=== PATIENT | male | born 1950 | race Two or more races ===

== ENCOUNTER → 2016-07-11 | Outpatient (CLI) | payer OTHER ==
[~2016-07-11] MED LIST: ASPI81TA27 PO; ATOR20TA50 PO; CLOP75TA28 PO; DEXL60CA3 PO; ERGO2000 PO; INSUINJ18 SC; LISI10TA6 PO; METF-316 PO; METO25TA5 PO
== END | disposition home or self-care (01) ==
LOC: LAB 11:24
PROVIDERS: ATTEND Thoracic Surgery (Cardiothoracic Vascular Surgery)
DX: R91.8 Other nonspecific abnormal finding of lung field (principal)
CPT/HCPCS: 87070; 87205

== ENCOUNTER → 2016-07-14 | Outpatient (CLI) | payer OTHER | END | disposition home or self-care (01) | LOC: Rad HDHVI 09:40 | PROVIDERS: ATTEND Internal Medicine Cardiovascular Disease | DX: J32.0 Chronic maxillary sinusitis (principal); G31.89 Other specified degenerative diseases of nervous system; I99.8 Other disorder of circulatory system; I67.2 Cerebral atherosclerosis | CPT/HCPCS: 70450 ==

== ENCOUNTER → 2016-08-09 | Outpatient (CLI) | payer OTHER ==
[2016-08-09 15:33] LABS: Basophils # (auto) 0 uL; Basophils % (auto) 0.5 % (0.0-2.0); Eosinophils # (auto) 0.3 uL; Eosinophils % (auto) 3.2 % (0.0-7.0); Hematocrit 40.4 % (41.0-53.0); Hemoglobin 12.7 g/dL (13.5-17.5); Lymphocytes # (auto) 2.8 uL; Lymphocytes % (auto) 30.5 % (10.0-50.0); Mean Corpuscular Hemoglobin 27.1 pg (28.0-32.0); Mean Corpuscular Hgb Conc. 31.4 g/dL (32.0-36.0); Mean Corpuscular Volume 86.1 fL (80.0-100.0); Mean Platelet Volume 8.9 fL (7.4-10.4); Monocytes # (auto) 0.7 uL; Monocytes % (auto) 7.6 % (0.0-12.0); Neutrophils # (auto) 5.3 uL; Neutrophils % (auto) 58.2 % (37.0-80.0); Platelet Count (auto) 286 10^3/uL (140-450); Red Cell Distribution Width 16.3 % (11.6-16.0)
[2016-08-09 15:38] LABS: Albumin 3.5 g/dL (3.4-5.0); BUN/Creatinine Ratio 19.6; Calcium 8.7 mg/dL (8.5-10.1); Potassium 4.1 mmol/L (3.5-5.1)
[2016-08-09 15:41] LABS: Bilirubin, Total 0.4 mg/dL (0.2-1.0); Total Protein 7.7 g/dL (6.4-8.2)
== END | disposition home or self-care (01) ==
LOC: LAB 14:58
PROVIDERS: ATTEND Specialist
DX: I25.110 Atherosclerotic heart disease of native coronary artery with unstable angina pectoris (principal)
CPT/HCPCS: 36415; 80053; 85025

== ENCOUNTER 2016-10-04 10:50 | Inpatient (IN) | payer OTHER ==
[~2016-10-04] VITALS: Ht 170.2 cm; Wt 106.4 kg
[2016-10-04] MEDS ORDERED: SODIUM CHLORIDE 0.9% 1,000 ML IV ONE (11:36)
[2016-10-04] MEDS ORDERED: MORPHINE SULF INJ 2 MG/ML SYRINGE 1ML IV ONE (11:45)
[2016-10-04] MEDS ORDERED: ASPirin 81 mg TAB PO ONE ×2 (11:45→15:30)
[2016-10-04] MEDS ORDERED: ONDANSETRON HCL 4 MG/2 ML VIAL ONE (11:51)
[2016-10-04] MEDS ORDERED: ONDANSETRON HCL 4 MG/2 ML VIAL IV ONE (12:00)
[2016-10-04 12:07] LABS: Basophils # (auto) 0 uL; Basophils % (auto) 0.4 % (0.0-2.0); Eosinophils # (auto) 0.2 uL; Eosinophils % (auto) 2.7 % (0.0-7.0); Hematocrit 43.3 % (41.0-53.0); Hemoglobin 14.3 g/dL (13.5-17.5); Lymphocytes # (auto) 2.2 uL; Lymphocytes % (auto) 29.6 % (10.0-50.0); Mean Corpuscular Hemoglobin 27.4 pg (28.0-32.0); Mean Corpuscular Hgb Conc. 33.1 g/dL (32.0-36.0); Mean Corpuscular Volume 82.7 fL (80.0-100.0); Monocytes # (auto) 0.5 uL; Neutrophils # (auto) 4.6 uL; Neutrophils % (auto) 60.3 % (37.0-80.0); Platelet Count (auto) 243 10^3/uL (140-450); Red Cell Distribution Width 15.9 % (11.6-16.0); White Blood Cell 7.6 10^3/uL (4.4-10.8)
[2016-10-04 12:29] LABS: Albumin 3.6 g/dL (3.4-5.0); Bilirubin, Total 0.4 mg/dL (0.2-1.0); Calcium 9.1 mg/dL (8.5-10.1); Magnesium 2.1 mg/dL (1.6-2.6); Potassium 4.4 mmol/L (3.5-5.1); Total Protein 7.3 g/dL (6.4-8.2)
[2016-10-04 12:30] LABS: B-Type Natriuretic Peptide 75.7 pg/mL (0-100)
[2016-10-04 12:34] LABS: INR 1.02 (0.9-1.15); Partial Thromboplastin Time 27.3 sec (22.64-33.71)
[2016-10-04 13:11] LABS: Temperature: 23.6 C (20.0-25.0)
[2016-10-04] MEDS ORDERED: MORPHINE SULF INJ 2 MG/ML SYRINGE 1ML IV PRN ×2 (15:15)
[2016-10-04] MEDS ORDERED: PROCHLORPERAZINE EDISYLATE 5 MG/ML 2ML VIAL IV PRN (15:15)
[2016-10-04] MEDS ORDERED: NITROGLYCERIN 0.4 MG SL TAB SL PRN (15:15)
[2016-10-04] MEDS ORDERED: HYDROcodone-ACET 5/325MG TAB PO PRN (15:15)
[2016-10-04] MEDS ORDERED: DEXTROSE (50%) 50ML SYRG IV PRN (15:15)
[2016-10-04] MEDS ORDERED: LORazepam 0.5 MG TAB PO PRN (15:15)
[2016-10-04] MEDS ORDERED: LACTULOSE 20Gm/30ML SOLN PO PRN (15:15)
[2016-10-04] MEDS ORDERED: ACETAMINOPHEN 500 MG TAB PO PRN (15:15)
[2016-10-04] MEDS ORDERED: TEMAZEPAM 15 MG CAP PO PRN (15:15)
[2016-10-04] MEDS: SODIUM CHLORIDE 0.9% 1,000 ML IV SCH (15:19)
[2016-10-04] MEDS ORDERED: CLOPIDOGREL BISULFATE 75 MG TAB PO ONE (15:30)
[2016-10-04] MEDS ORDERED: NITROGLYCERIN 0.2MG/HR TOPICAL PATCH TD ONE (15:30)
[2016-10-04] MEDS ORDERED: ENOXAPARIN SOD 40 MG/0.4 ML SYRINGE SC ONE (15:30)
[2016-10-04] MEDS ORDERED: METOPROLOL TARTRATE 25 MG TAB PO ONE (15:30)
[2016-10-04] MEDS ORDERED: LISINOPRIL 10 MG TAB PO ONE (15:30)
[2016-10-04] MEDS: CHOLECALCIFEROL (VITD3) 1,000 UNIT TAB PO SCH (15:40)
[2016-10-04] MEDS ORDERED: IOHEXOL 350 MG/ML 100ML IJ ONE (15:50)
[2016-10-04] MEDS: InsuLIN REG 1unit/0.01ml Soln (100units/ml) SC SCH ×3 (15:55→23:56)
[2016-10-04] MEDS: ACCU-CHEK COMFORT CURVE STRIP VI SCH ×3 (15:55→23:55)
[2016-10-04 18:25] VITALS: BP 128/69
[2016-10-04] MEDS: PANTOPRAZOLE 40 MG TAB PO SCH (18:31)
[2016-10-04] MEDS ORDERED: ALPR0.5T7 PO (19:23)
[2016-10-04] MEDS ORDERED: QUET50TA PO (19:23)
[2016-10-04] MEDS ORDERED: METO25TA62 PO (19:24)
[2016-10-04 20:00] VITALS: BP 105/47
[2016-10-04] MEDS: ATORVASTATIN 20 MG TAB PO SCH (21:21)
[2016-10-04 22:00] VITALS: BP 105/47
[2016-10-04] MEDS ORDERED: ENOXAPARIN SOD 80 MG/0.8ML SYRINGE SC ONE (22:30)
[2016-10-04 22:50] VITALS: BP 106/50
[2016-10-05] VITALS (7 sets, daily range): BP systolic 101–119; BP diastolic 46–79
[2016-10-05] MEDS: ACCU-CHEK COMFORT CURVE STRIP VI SCH ×4 (04:00→17:43)
[2016-10-05] MEDS: InsuLIN REG 1unit/0.01ml Soln (100units/ml) SC SCH ×4 (04:00→17:43)
[2016-10-05] MEDS: SODIUM CHLORIDE 0.9% 1,000 ML IV SCH (04:05)
[2016-10-05 05:53] LABS: Basophils # (auto) 0 uL; Basophils % (auto) 0.5 % (0.0-2.0); Eosinophils # (auto) 0.3 uL; Eosinophils % (auto) 3.2 % (0.0-7.0); Hematocrit 41.9 % (41.0-53.0); Hemoglobin 13.5 g/dL (13.5-17.5); Lymphocytes # (auto) 2.2 uL; Lymphocytes % (auto) 26.8 % (10.0-50.0); Mean Corpuscular Hemoglobin 27.1 pg (28.0-32.0); Mean Corpuscular Hgb Conc. 32.3 g/dL (32.0-36.0); Mean Corpuscular Volume 84.1 fL (80.0-100.0); Mean Platelet Volume 9.1 fL (7.4-10.4); Monocytes # (auto) 0.7 uL; Monocytes % (auto) 8.3 % (0.0-12.0); Neutrophils % (auto) 61.2 % (37.0-80.0); Platelet Count (auto) 221 10^3/uL (140-450); Red Cell Distribution Width 15.9 % (11.6-16.0); White Blood Cell 8.2 10^3/uL (4.4-10.8)
[2016-10-05 06:37] LABS: Albumin 3.3 g/dL (3.4-5.0); BUN/Creatinine Ratio 15.9; Bilirubin, Total 0.4 mg/dL (0.2-1.0); Calcium 8.4 mg/dL (8.5-10.1); Total Protein 6.6 g/dL (6.4-8.2)
[2016-10-05] MEDS: CHOLECALCIFEROL (VITD3) 1,000 UNIT TAB PO SCH (09:50)
[2016-10-05] MEDS: PANTOPRAZOLE 40 MG TAB PO SCH (09:51)
[2016-10-05] MEDS: ASPirin 81 mg TAB PO SCH (09:51)
[2016-10-05] MEDS: CLOPIDOGREL BISULFATE 75 MG TAB PO SCH (09:51)
[2016-10-05] MEDS ORDERED: ASP SC SCH (10:00)
[2016-10-05] MEDS ORDERED: INSULIN ASPART PROTAMINE SC SCH (10:00)
[2016-10-05] MEDS: LISINOPRIL 10 MG TAB PO SCH (10:00)
[2016-10-05] MEDS: NITROGLYCERIN 0.2MG/HR TOPICAL PATCH TD SCH (10:00)
[2016-10-05] MEDS ORDERED: ENOXAPARIN SOD 40 MG/0.4 ML SYRINGE SC SCH (10:00)
[2016-10-05] MEDS: METOPROLOL TARTRATE 25 MG TAB PO SCH ×2 (10:00→12:30)
[2016-10-05] MEDS ORDERED: DEXTROSE (50%) 50ML SYRG IV PRN (12:15)
[2016-10-05] MEDS ORDERED: ALPRAZolam 0.5 MG TAB PO ONE (12:45)
[2016-10-05] MEDS ORDERED: ENOXAPARIN SOD 80 MG/0.8ML SYRINGE SC ONE (15:21)
[2016-10-05] MEDS ORDERED: ALPRAZolam 0.5 MG TAB PO PRN (20:00)
[2016-10-05] MEDS: ATORVASTATIN 20 MG TAB PO SCH (21:37)
[2016-10-05] MEDS ORDERED: ENOXAPARIN SOD 100 MG/1 ML SYRINGE SC SCH (22:00)
[2016-10-06] VITALS (10 sets, daily range): BP systolic 93–126; BP diastolic 52–80
[2016-10-06] MEDS: ACCU-CHEK COMFORT CURVE STRIP VI SCH ×5 (00:14→23:43)
[2016-10-06] MEDS: InsuLIN REG 1unit/0.01ml Soln (100units/ml) SC SCH ×5 (00:14→23:48)
[2016-10-06 00:21] LABS: Urine RBC None Seen /hpf (0 - 3)
[2016-10-06 00:42] LABS: Urine Bilirubin Negative (Negative); Urine Blood Negative /uL (Negative); Urine Color Yellow (Yellow); Urine Ketone Negative (Negative); Urine Nitrite Negative (Negative); Urine Squamous Epithelial Cell FEW /hpf (<5); Urine Urobilinogen Normal (Negative)
[2016-10-06 00:44] LABS: Urine Glucose 2+ mg/dL (Normal)
[2016-10-06 06:17] LABS: Basophils # (auto) 0 uL; Basophils % (auto) 0.2 % (0.0-2.0); Eosinophils # (auto) 0.3 uL; Eosinophils % (auto) 2.9 % (0.0-7.0); Hemoglobin 13.9 g/dL (13.5-17.5); Lymphocytes # (auto) 3.2 uL; Lymphocytes % (auto) 35.7 % (10.0-50.0); Mean Corpuscular Hemoglobin 27.1 pg (28.0-32.0); Mean Corpuscular Hgb Conc. 32.2 g/dL (32.0-36.0); Mean Corpuscular Volume 84.1 fL (80.0-100.0); Mean Platelet Volume 9.1 fL (7.4-10.4); Monocytes # (auto) 0.7 uL; Monocytes % (auto) 8.1 % (0.0-12.0); Neutrophils # (auto) 4.7 uL; Neutrophils % (auto) 53.1 % (37.0-80.0); Platelet Count (auto) 247 10^3/uL (140-450); Red Cell Distribution Width 15.9 % (11.6-16.0); White Blood Cell 8.8 10^3/uL (4.4-10.8)
[2016-10-06 06:58] LABS: BUN/Creatinine Ratio 12.6; Potassium 3.9 mmol/L (3.5-5.1)
[2016-10-06] MEDS: ASPirin 81 mg TAB PO SCH (10:00)
[2016-10-06] MEDS: INSULIN 70/30 1unit/0.01ml Susp (100units/ml) SC SCH (10:00)
[2016-10-06] MEDS: NITROGLYCERIN 0.2MG/HR TOPICAL PATCH TD SCH (10:00)
[2016-10-06] MEDS: CHOLECALCIFEROL (VITD3) 1,000 UNIT TAB PO SCH (10:26)
[2016-10-06] MEDS: CLOPIDOGREL BISULFATE 75 MG TAB PO SCH (10:26)
[2016-10-06] MEDS: METOPROLOL TARTRATE 25 MG TAB PO SCH (10:56)
[2016-10-06] MEDS: PANTOPRAZOLE 40 MG TAB PO SCH (10:56)
[2016-10-06] MEDS: LISINOPRIL 10 MG TAB PO SCH (10:57)
[2016-10-06] MEDS ORDERED: LIDOCAINE 2%HCL (LOCAL ANESTH.) INJ 20ML MDV ONE (13:20)
[2016-10-06] MEDS ORDERED: IOHEXOL 350 MG/ML 100ML IJ ONE (13:20)
[2016-10-06] MEDS ORDERED: fentaNYL CITRATE 100 MCG/2 ML VL ONE (13:23)
[2016-10-06] MEDS ORDERED: ANGIOMAX 250 MG VIAL IV ONE (13:23)
[2016-10-06] MEDS ORDERED: MIDAZOLAM HCL 1MG/1ML-2 ML VIAL ONE (13:24)
[2016-10-06] MEDS ORDERED: SODIUM CHL 0.9% 50 ML ONE (13:24)
[2016-10-06] MEDS ORDERED: QUEtiapine FUMARATE 25 MG TAB PO SCH (22:00)
[2016-10-06] MEDS: ATORVASTATIN 20 MG TAB PO SCH (22:15)
[2016-10-07 05:00] VITALS: BP 83/57
[2016-10-07] MEDS: ACCU-CHEK COMFORT CURVE STRIP VI SCH ×2 (05:30→13:20)
[2016-10-07] MEDS: InsuLIN REG 1unit/0.01ml Soln (100units/ml) SC SCH ×2 (05:33→13:20)
[2016-10-07 05:58] LABS: Calcium 8.7 mg/dL (8.5-10.1); Potassium 3.7 mmol/L (3.5-5.1)
[2016-10-07 09:00] VITALS: BP 90/46
[2016-10-07] MEDS: METOPROLOL TARTRATE 25 MG TAB PO SCH (10:00)
[2016-10-07] MEDS: LISINOPRIL 10 MG TAB PO SCH (10:00)
[2016-10-07] MEDS: NITROGLYCERIN 0.2MG/HR TOPICAL PATCH TD SCH (10:00)
[2016-10-07] MEDS: ASPirin 81 mg TAB PO SCH (10:16)
[2016-10-07] MEDS: CLOPIDOGREL BISULFATE 75 MG TAB PO SCH (10:17)
[2016-10-07] MEDS: PANTOPRAZOLE 40 MG TAB PO SCH (10:18)
[2016-10-07] MEDS: CHOLECALCIFEROL (VITD3) 1,000 UNIT TAB PO SCH (10:18)
[2016-10-07] MEDS: INSULIN 70/30 1unit/0.01ml Susp (100units/ml) SC SCH (10:25)
[2016-10-07 13:00] VITALS: BP 106/69
== END 2016-10-07 16:30 | disposition home or self-care (01) | DRG 247 ==
LOC: EDBD 10:50 → ER 10:50 → TELE 10:51 → TELE-E-ADS 17:28 → TELE-WESTW 17:57
PROVIDERS: ADMIT Internal Medicine; ATTEND Internal Medicine
PROC: 027135Z Dilation of Coronary Artery, Two Arteries with Two Drug-eluting Intraluminal Devices, Percutaneous Approach (ICD-10-PCS; principal; 2016-10-04)
PROC: 4A023N7 Measurement of Cardiac Sampling and Pressure, Left Heart, Percutaneous Approach (ICD-10-PCS; 2016-10-04)
PROC: B2111ZZ Fluoroscopy of Multiple Coronary Arteries using Low Osmolar Contrast (ICD-10-PCS; 2016-10-04)
DX: I21.4 Non-ST elevation (NSTEMI) myocardial infarction (principal); I25.810 Atherosclerosis of coronary artery bypass graft(s) without angina pectoris; E11.65 Type 2 diabetes mellitus with hyperglycemia; E78.5 Hyperlipidemia, unspecified; E66.01 Morbid (severe) obesity due to excess calories; G47.00 Insomnia, unspecified; F41.9 Anxiety disorder, unspecified; F17.210 Nicotine dependence, cigarettes, uncomplicated; I10 Essential (primary) hypertension; E66.9 Obesity, unspecified; Z86.73 Personal history of transient ischemic attack (TIA), and cerebral infarction without residual deficits; Z95.0 Presence of cardiac pacemaker; Z95.5 Presence of coronary angioplasty implant and graft; Z95.1 Presence of aortocoronary bypass graft; Z79.899 Other long term (current) drug therapy; Z68.36 Body mass index [BMI] 36.0-36.9, adult
CPT/HCPCS: 36415; 71020; 71275; 80048; 80053; 81001; 82550; 82962; 83036; 83735; 83880; 84443; 84484; 85025; 85379; 85610; 85652; 85730; 86850; 86900; 86901; 92928; 92929; 93005; 93458; 96361; 96372; 96374; 96375; G0434; J1815; J2250; J2405

== ENCOUNTER → 2016-11-15 | Outpatient (CLI) | payer OTHER ==
[~2016-11-15] VITALS: Ht 170.2 cm; Wt 102.5 kg
[~2016-11-15] MED LIST changes: +ADENOSINE 86 MG in GIVE UN-DILUTED 0 ML IV ONE; +ADENOSINE 90 MG/30 ML INJ IV ONE; +ALPR0.5T7 PO; -METF-316 PO; -METO25TA5 PO; +METO25TA62 PO; +QUET50TA PO
== END | disposition home or self-care (01) ==
LOC: Rad HDHVI 09:00
PROVIDERS: ATTEND Internal Medicine Cardiovascular Disease
DX: I25.2 Old myocardial infarction (principal); I10 Essential (primary) hypertension; E11.9 Type 2 diabetes mellitus without complications; E78.00 Pure hypercholesterolemia, unspecified; Z95.1 Presence of aortocoronary bypass graft; Z95.0 Presence of cardiac pacemaker
CPT/HCPCS: 78452; 93005; 96374; 96375; A9500; J0153

== ENCOUNTER → 2017-04-18 | Outpatient (CLI) | payer OTHER ==
[~2017-04-18] MED LIST changes: -ADENOSINE 86 MG in GIVE UN-DILUTED 0 ML IV ONE; -ADENOSINE 90 MG/30 ML INJ IV ONE
[2017-04-18 08:10] VITALS: BP 108/61
== END | disposition home or self-care (01) ==
LOC: CHF HDHVI 08:01
PROVIDERS: ATTEND Internal Medicine Cardiovascular Disease
DX: I50.9 Heart failure, unspecified (principal); R07.89 Other chest pain; Z95.810 Presence of automatic (implantable) cardiac defibrillator
CPT/HCPCS: 93005; G0463

== ENCOUNTER 2017-05-07 11:24 | Inpatient (IN) | payer OTHER ==
[~2017-05-07] VITALS: Ht 165.1 cm; Wt 98.6 kg
[2017-05-07 12:29] LABS: Basophils # (auto) 0 uL; Basophils % (auto) 0.6 % (0.0-2.0); Eosinophils # (auto) 0.1 uL; Eosinophils % (auto) 1.3 % (0.0-7.0); Hematocrit 45.5 % (41.0-53.0); Hemoglobin 14.8 g/dL (13.5-17.5); Lymphocytes # (auto) 1.9 uL; Lymphocytes % (auto) 22.7 % (10.0-50.0); Mean Corpuscular Hemoglobin 29.3 pg (28.0-32.0); Mean Corpuscular Hgb Conc. 32.5 g/dL (32.0-36.0); Mean Corpuscular Volume 90.2 fL (80.0-100.0); Mean Platelet Volume 7.9 fL (6.9-10.8); Monocytes # (auto) 0.6 uL; Monocytes % (auto) 6.9 % (0.0-12.0); Neutrophils # (auto) 5.6 uL; Neutrophils % (auto) 68.5 % (37.0-80.0); Nucleated Red Blood Cells % 0.1 %; Platelet Count (auto) 237 10^3/uL (140-450); Red Cell Distribution Width 13.6 % (11.8-14.3); White Blood Cell 8.2 10^3/uL (4.4-10.8)
[2017-05-07 12:42] LABS: Albumin 3.8 g/dL (3.4-5.0); Alkaline Phosphatase 89 U/L (45-117); Anion Gap 9 (5-15); Aspartate Aminotransferase 22 U/L (15-37); BUN/Creatinine Ratio 14.2; Bilirubin, Total 0.9 mg/dL (0.2-1.0); Blood Urea Nitrogen 18 mg/dL (7-18); Calcium 9.2 mg/dL (8.5-10.1); Carbon Dioxide 25 mmol/L (21-32); Chloride 103 mmol/L (98-107); GFR African American 73 mL/min; GFR Non-African American 60 mL/min; Glucose 175 mg/dL (74-106); Magnesium 2.3 mg/dL (1.6-2.6); Potassium 4.3 mmol/L (3.5-5.1); Sodium 137 mmol/L (136-145); Total Protein 7.9 g/dL (6.4-8.2)
[2017-05-07] MEDS ORDERED: DEXTROSE (50%) 50ML SYRG IV PRN (15:30)
[2017-05-07] MEDS ORDERED: NITROGLYCERIN 0.4 MG SL TAB SL PRN (15:30)
[2017-05-07] MEDS: InsuLIN REG 1unit/0.01ml Soln (100units/ml) SC SCH ×2 (17:00→22:00)
[2017-05-07] MEDS: ACCU-CHEK COMFORT CURVE STRIP VI SCH ×2 (17:13→23:01)
[2017-05-07 21:00] VITALS: BP 120/75
[2017-05-07 22:00] VITALS: BP 114/74
[2017-05-07] MEDS: QUEtiapine FUMARATE 25 MG TAB PO SCH (23:00)
[2017-05-07] MEDS: ATORVASTATIN 20 MG TAB PO SCH (23:00)
[2017-05-08] MEDS ORDERED: TEMAZEPAM 15 MG CAP PO ONE (01:00)
[2017-05-08 05:00] VITALS: BP 104/68
[2017-05-08] MEDS: ACCU-CHEK COMFORT CURVE STRIP VI SCH ×4 (07:00→22:41)
[2017-05-08] MEDS: InsuLIN REG 1unit/0.01ml Soln (100units/ml) SC SCH ×4 (07:00→22:00)
[2017-05-08 08:00] VITALS: BP 115/72
[2017-05-08 09:00] VITALS: BP 115/72
[2017-05-08] MEDS: ASPirin 81 mg TAB PO SCH (10:37)
[2017-05-08 10:56] LABS: Urine Bilirubin Negative (Negative); Urine Blood Negative /uL (Negative); Urine Color Yellow (Yellow); Urine Glucose Normal (Normal); Urine Ketone Negative (Negative); Urine Mucus FEW (None Seen); Urine Nitrite Negative (Negative); Urine RBC 1 /hpf (0 - 3); Urine Squamous Epithelial Cell FEW /hpf (<5)
[2017-05-08] MEDS ORDERED: VANCOMYCIN HCL 1000 MG VL IR ONE (12:45)
[2017-05-08] MEDS ORDERED: ceFAZolin 1GM/50ML 50 ML IV ONE (12:45)
[2017-05-08] MEDS ORDERED: VANCOMYCIN 1GM/250ML 250 ML IV ONE (12:45)
[2017-05-08 13:00] VITALS: BP 141/76
[2017-05-08] MEDS ORDERED: LIDOCAINE 2%HCL (LOCAL ANESTH.) INJ 20ML MDV ONE ×2 (13:37→14:48)
[2017-05-08 14:01] LABS: INR 0.99 (0.9-1.15); Prothrombin Time 10.8 sec (9.37-12.3)
[2017-05-08] MEDS ORDERED: MIDAZOLAM HCL 1MG/1ML-2 ML VIAL ONE (15:06)
[2017-05-08] MEDS ORDERED: fentaNYL CITRATE 100 MCG/2 ML VL ONE (15:06)
[2017-05-08] MEDS ORDERED: ceFAZolin 1GM VL ONE (15:34)
[2017-05-08 17:00] VITALS: BP 140/79
[2017-05-08] MEDS ORDERED: QUET25TA46 PO (18:22)
[2017-05-08] MEDS ORDERED: INSLANTI SC (18:23)
[2017-05-08 22:00] VITALS: BP 106/58
[2017-05-08] MEDS: ATORVASTATIN 20 MG TAB PO SCH (22:40)
[2017-05-08] MEDS: QUEtiapine FUMARATE 25 MG TAB PO SCH (22:41)
[2017-05-09 05:00] VITALS: BP 106/54
[2017-05-09] MEDS: ACCU-CHEK COMFORT CURVE STRIP VI SCH ×2 (07:00→11:44)
[2017-05-09] MEDS: InsuLIN REG 1unit/0.01ml Soln (100units/ml) SC SCH ×2 (07:00→11:30)
[2017-05-09] MEDS: ASPirin 81 mg TAB PO SCH (09:28)
[2017-05-09 12:07] VITALS: BP 134/78
== END 2017-05-09 12:50 | disposition home or self-care (01) | DRG 259 ==
LOC: ER 11:24 → TELE 11:25 → TELE-WESTW 20:10
PROVIDERS: ADMIT Internal Medicine; ATTEND Internal Medicine
PROC: 0JPT0PZ Removal of Cardiac Rhythm Related Device from Trunk Subcutaneous Tissue and Fascia, Open Approach (ICD-10-PCS; principal; 2017-05-08)
PROC: 0JH606Z Insertion of Pacemaker, Dual Chamber into Chest Subcutaneous Tissue and Fascia, Open Approach (ICD-10-PCS; 2017-05-08)
DX: T82.111A Breakdown (mechanical) of cardiac pulse generator (battery), initial encounter (principal); I49.5 Sick sinus syndrome; E11.9 Type 2 diabetes mellitus without complications; I10 Essential (primary) hypertension; I25.10 Atherosclerotic heart disease of native coronary artery without angina pectoris; Y71.2 Prosthetic and other implants, materials and accessory cardiovascular devices associated with adverse incidents; E66.9 Obesity, unspecified; E78.5 Hyperlipidemia, unspecified; Z79.4 Long term (current) use of insulin; Z79.899 Other long term (current) drug therapy; Z95.1 Presence of aortocoronary bypass graft; Y92.89 Other specified places as the place of occurrence of the external cause; Z68.36 Body mass index [BMI] 36.0-36.9, adult
CPT/HCPCS: 33228; 36415; 70450; 71010; 71020; 80053; 81001; 82962; 83036; 83735; 84484; 85025; 85610; 85730; 93005; 93306; 94761; 99152; 99153; C1785; J0690; J2250

== ENCOUNTER → 2017-05-14 | Outpatient (CLI) | payer OTHER ==
[~2017-05-14] MED LIST changes: -CLOP75TA28 PO; -DEXL60CA3 PO; +INSLANTI SC; -INSUINJ18 SC; +QUET25TA46 PO; -QUET50TA PO
[2017-05-14 16:00] VITALS: BP 142/90
[2017-05-14 16:17] LABS: Basophils # (auto) 0.1 uL; Basophils % (auto) 0.9 % (0.0-2.0); Eosinophils # (auto) 0.2 uL; Eosinophils % (auto) 2.4 % (0.0-7.0); Hematocrit 43.6 % (41.0-53.0); Hemoglobin 14.6 g/dL (13.5-17.5); Lymphocytes # (auto) 2.8 uL; Lymphocytes % (auto) 30.5 % (10.0-50.0); Mean Corpuscular Hemoglobin 29.7 pg (28.0-32.0); Mean Corpuscular Hgb Conc. 33.5 g/dL (32.0-36.0); Mean Corpuscular Volume 88.6 fL (80.0-100.0); Monocytes # (auto) 0.7 uL; Neutrophils # (auto) 5.3 uL; Neutrophils % (auto) 58.2 % (37.0-80.0); Nucleated Red Blood Cells % 0.1 %; Platelet Count (auto) 216 10^3/uL (140-450)
[2017-05-14 16:29] VITALS: BP 141/80
[2017-05-14 16:47] LABS: Albumin 3.8 g/dL (3.4-5.0); Bilirubin, Total 0.5 mg/dL (0.2-1.0); Calcium 8.7 mg/dL (8.5-10.1); Magnesium 2.1 mg/dL (1.6-2.6); Potassium 4.8 mmol/L (3.5-5.1); Total Protein 7.7 g/dL (6.4-8.2)
== END | disposition home or self-care (01) ==
LOC: CHF HDHVI 15:17
PROVIDERS: ATTEND Internal Medicine Cardiovascular Disease
DX: I10 Essential (primary) hypertension (principal); E83.42 Hypomagnesemia; D64.9 Anemia, unspecified
CPT/HCPCS: 36415; 80053; 83735; 85025; G0463

== ENCOUNTER → 2017-05-24 | Outpatient (CLI) | payer OTHER ==
[2017-05-24 09:45] VITALS: BP 142/88
== END | disposition home or self-care (01) ==
LOC: CHF HDHVI 09:55
PROVIDERS: ATTEND Internal Medicine Cardiovascular Disease
DX: Z95.0 Presence of cardiac pacemaker (principal)
CPT/HCPCS: G0463

== ENCOUNTER → 2018-10-14 | Outpatient (CLI) | payer OTHER ==
[2018-10-14 10:22] LABS: Basophils # (auto) 0 uL; Basophils % (auto) 0.5 % (0.0-2.0); Eosinophils # (auto) 0.2 uL; Eosinophils % (auto) 3.4 % (0.0-7.0); Hematocrit 44.1 % (41.0-53.0); Hemoglobin 14.3 g/dL (13.5-17.5); Lymphocytes # (auto) 1.4 uL; Lymphocytes % (auto) 19.7 % (10.0-50.0); Mean Corpuscular Hemoglobin 28.3 pg (28.0-32.0); Mean Corpuscular Hgb Conc. 32.5 g/dL (32.0-36.0); Mean Corpuscular Volume 87.1 fL (80.0-100.0); Monocytes # (auto) 0.5 uL; Monocytes % (auto) 6.6 % (0.0-12.0); Neutrophils # (auto) 4.9 uL; Neutrophils % (auto) 69.8 % (37.0-80.0); Nucleated Red Blood Cells % 0.1 %; Platelet Count (auto) 218 10^3/uL (140-450); Red Blood Cells 5.06 10^6/uL (4.5-5.90); Red Cell Distribution Width 14.1 % (11.8-14.3)
[2018-10-14 10:25] LABS: Urine Bacteria NONE SEEN /hpf (None Seen); Urine Blood Negative /uL (Negative); Urine Specific Gravity 1.013 (1.001-1.035); Urine WBC <1 /hpf (0 - 3)
[2018-10-14 17:10] LABS: Calcium 9.2 mg/dL (8.5-10.1); Potassium 4.2 mmol/L (3.5-5.1)
[2018-10-14 17:16] LABS: Albumin 4.1 g/dL (3.4-5.0); BUN/Creatinine Ratio 12.1; Bilirubin, Total 0.8 mg/dL (0.2-1.0)
== END | disposition home or self-care (01) ==
LOC: LAB 09:33
PROVIDERS: ATTEND Family Medicine
DX: E11.9 Type 2 diabetes mellitus without complications (principal); I10 Essential (primary) hypertension; L82.1 Other seborrheic keratosis; E66.9 Obesity, unspecified; Z95.0 Presence of cardiac pacemaker
CPT/HCPCS: 36415; 80053; 80061; 81001; 82043; 82607; 83036; 85025

== ENCOUNTER → 2019-07-22 | Outpatient (CLI) | payer OTHER ==
[~2019-07-22] VITALS: Ht 170.2 cm; Wt 97.5 kg
[~2019-07-22] MED LIST changes: +ADENOSINE 82 MG in GIVE UN-DILUTED 0 ML IV ONE; +ADENOSINE 90 MG/30 ML INJ IV ONE; +ASPI-404 PO; -ASPI81TA27 PO; -METO25TA62 PO; +METO25TA93 PO
== END | disposition home or self-care (01) ==
LOC: Rad HDHVI 07:53
PROVIDERS: ATTEND Internal Medicine Cardiovascular Disease
DX: I08.3 Combined rheumatic disorders of mitral, aortic and tricuspid valves (principal); I25.118 Atherosclerotic heart disease of native coronary artery with other forms of angina pectoris; I10 Essential (primary) hypertension; R53.83 Other fatigue; R53.1 Weakness; R41.3 Other amnesia; E11.9 Type 2 diabetes mellitus without complications; E78.00 Pure hypercholesterolemia, unspecified; I25.2 Old myocardial infarction; Z95.5 Presence of coronary angioplasty implant and graft; Z95.1 Presence of aortocoronary bypass graft; Z95.0 Presence of cardiac pacemaker
CPT/HCPCS: 78452; 93005; 93306; 96374; 96375; A9500; J0153

== ENCOUNTER → 2021-01-26 | Outpatient (CLI) | payer OTHER ==
[~2021-01-26] MED LIST changes: -ADENOSINE 82 MG in GIVE UN-DILUTED 0 ML IV ONE; -ADENOSINE 90 MG/30 ML INJ IV ONE; -ASPI-404 PO; +ASPI-543 PO; +IOHEXOL 300 MG/ML 100ML BOTTLE IJ ONE; +LIDOCAINE 2%HCL (LOCAL ANESTH.) INJ 20ML MDV ONE; +LISI-716 PO; -LISI10TA6 PO
== END | disposition home or self-care (01) ==
LOC: CT 09:50
PROVIDERS: ATTEND Orthopaedic Surgery Sports Medicine
DX: M25.511 Pain in right shoulder (principal); S43.004D Unspecified dislocation of right shoulder joint, subsequent encounter; F32.9 Major depressive disorder, single episode, unspecified; Z82.49 Family history of ischemic heart disease and other diseases of the circulatory system; Z95.5 Presence of coronary angioplasty implant and graft; Z80.9 Family history of malignant neoplasm, unspecified; Z83.49 Family history of other endocrine, nutritional and metabolic diseases; Y92.89 Other specified places as the place of occurrence of the external cause; Y93.89 Activity, other specified; Y99.8 Other external cause status
CPT/HCPCS: 73030; 73200; 76000; Q9967

== ENCOUNTER → 2021-05-11 | Outpatient (CLI) | payer OTHER ==
[~2021-05-11] VITALS: Ht 170.2 cm; Wt 104.3 kg
[~2021-05-11] MED LIST changes: +ADENOSINE 88 MG in GIVE UN-DILUTED 0 ML IV ONE; +ADENOSINE 90 MG/30 ML INJ IV ONE; -IOHEXOL 300 MG/ML 100ML BOTTLE IJ ONE; -LIDOCAINE 2%HCL (LOCAL ANESTH.) INJ 20ML MDV ONE; +QUET1TAB11 PO; -QUET25TA46 PO
== END | disposition home or self-care (01) ==
LOC: Rad HDHVI 08:15
PROVIDERS: ATTEND Internal Medicine Cardiovascular Disease
DX: I25.10 Atherosclerotic heart disease of native coronary artery without angina pectoris (principal); I10 Essential (primary) hypertension; E78.5 Hyperlipidemia, unspecified; E11.9 Type 2 diabetes mellitus without complications; F17.210 Nicotine dependence, cigarettes, uncomplicated; I25.2 Old myocardial infarction; Z95.1 Presence of aortocoronary bypass graft; Z95.0 Presence of cardiac pacemaker
CPT/HCPCS: 78452; 93005; 96374; 96375; A9500; J0153

== ENCOUNTER → 2021-05-26 | Outpatient (CLI) | payer OTHER ==
[~2021-05-26] MED LIST changes: -ADENOSINE 88 MG in GIVE UN-DILUTED 0 ML IV ONE; -ADENOSINE 90 MG/30 ML INJ IV ONE
== END | disposition home or self-care (01) ==
LOC: LAB 09:58
PROVIDERS: ATTEND Family Medicine
DX: E11.9 Type 2 diabetes mellitus without complications (principal)
CPT/HCPCS: 36415; 82043; 83036

== ENCOUNTER → 2021-11-07 | Outpatient (CLI) | payer OTHER ==
[~2021-11-07] MED LIST changes: -ASPI-543 PO; +ASPI1TAB20 PO; +CLOP75TA28 PO; +GLIP5TAB12 PO; -INSLANTI SC; -LISI-716 PO; +OMEP20TA PO
[2021-11-07 10:23] LABS: Basophils # (auto) 0.1 10 ^3/uL (0-0.2); Basophils % (auto) 1.3 % (0.0-2.0); Eosinophils # (auto) 0.5 10 ^3/uL (0-0.8); Eosinophils % (auto) 5.1 % (0.0-7.0); Hematocrit 41.1 % (41.0-53.0); Hemoglobin 13.9 g/dL (13.5-17.5); Lymphocytes # (auto) 2.1 10 ^3/uL (0.4-5.4); Lymphocytes % (auto) 22.4 % (10.0-50.0); Mean Corpuscular Hemoglobin 29.5 pg (28.0-32.0); Mean Corpuscular Hgb Conc. 33.7 g/dL (32.0-36.0); Mean Corpuscular Volume 87.5 fL (80.0-100.0); Monocytes # (auto) 0.7 10 ^3/uL (0-1.3); Monocytes % (auto) 7.3 % (0.0-12.0); Neutrophils % (auto) 63.9 % (37.0-80.0); Nucleated Red Blood Cells % 0.1 %; Red Blood Cells 4.69 10^6/uL (4.5-5.90); Red Cell Distribution Width 13.9 % (11.8-14.3); White Blood Cell 9.4 10^3/uL (4.4-10.8)
[2021-11-07 11:38] LABS: Free T4 (Free Thyroxine) 0.97 ng/dL (0.89-1.76)
[2021-11-07 11:39] LABS: Prostate Specific Antigen 0.78 ng/mL (0.0-4.0)
== END | disposition home or self-care (01) ==
LOC: LAB 09:12
PROVIDERS: ATTEND Internal Medicine
DX: E11.21 Type 2 diabetes mellitus with diabetic nephropathy (principal); I10 Essential (primary) hypertension
CPT/HCPCS: 36415; 82607; 83036; 84153; 84439; 84443; 85025

== ENCOUNTER → 2022-03-13 | Outpatient (CLI) | payer OTHER ==
[~2022-03-13] MED LIST changes: +ATOR40TA52 PO; +HYDR-4902 PO; +LOSA-69 PO
== END | disposition home or self-care (01) ==
LOC: Rad HDHVI 12:57
PROVIDERS: ATTEND Internal Medicine Cardiovascular Disease
DX: I63.81 Other cerebral infarction due to occlusion or stenosis of small artery (principal); I67.2 Cerebral atherosclerosis; I63.9 Cerebral infarction, unspecified
CPT/HCPCS: 70450

== ENCOUNTER → 2022-03-24 | Outpatient (CLI) | payer OTHER ==
[2022-03-24 11:04] VITALS: BP 139/65
[2022-03-24 11:49] VITALS: BP 142/65
[2022-03-24 11:59] LABS: Basophils # (auto) 0 10 ^3/uL (0-0.2); Basophils % (auto) 0.4 % (0.0-2.0); Eosinophils # (auto) 0.3 10 ^3/uL (0-0.8); Eosinophils % (auto) 3.2 % (0.0-7.0); Hemoglobin 13.7 g/dL (13.5-17.5); Lymphocytes # (auto) 1.7 10 ^3/uL (0.4-5.4); Lymphocytes % (auto) 21.6 % (10.0-50.0); Mean Corpuscular Hemoglobin 28.4 pg (28.0-32.0); Mean Corpuscular Hgb Conc. 31.9 g/dL (32.0-36.0); Monocytes # (auto) 0.5 10 ^3/uL (0-1.3); Monocytes % (auto) 6.9 % (0.0-12.0); Neutrophils # (auto) 5.4 10 ^3/uL (1.6-8.6); Neutrophils % (auto) 67.9 % (37.0-80.0); Nucleated Red Blood Cells % 0.1 %; Red Blood Cells 4.83 10^6/uL (4.5-5.90); Red Cell Distribution Width 13.5 % (11.8-14.3); White Blood Cell 7.9 10^3/uL (4.4-10.8)
[2022-03-24 12:16] LABS: Calcium 8.7 mg/dL (8.5-10.1); Potassium 4.3 mmol/L (3.5-5.1)
[2022-03-24 12:18] LABS: BUN/Creatinine Ratio 17.3
[2022-03-24 13:09] LABS: INR 0.97 (0.9-1.15); Partial Thromboplastin Time 27.4 sec (24.6-33.4)
== END | disposition home or self-care (01) ==
LOC: Rad HDHVI 10:49
PROVIDERS: ATTEND Internal Medicine Cardiovascular Disease
DX: Z01.818 Encounter for other preprocedural examination (principal); R94.31 Abnormal electrocardiogram [ECG] [EKG]; R42 Dizziness and giddiness; R05.9 Cough, unspecified; R79.1 Abnormal coagulation profile; Z95.0 Presence of cardiac pacemaker
CPT/HCPCS: 36415; 71046; 80048; 85025; 85610; 85730; 93005; G0463

== ENCOUNTER 2022-03-28 10:56 | Inpatient (IN) | payer OTHER ==
[~2022-03-28] VITALS: Ht 170.2 cm; Wt 99.0 kg
[2022-03-28] VITALS (9 sets, daily range): BP systolic 95–121; BP diastolic 49–69
[~2022-03-28 10:56] MED LIST changes: -ATOR20TA50 PO
[2022-03-28] MEDS ORDERED: LIDOCAINE 2%HCL (LOCAL ANESTH.) INJ 20ML MDV ONE (13:50)
[2022-03-28] MEDS ORDERED: IOHEXOL 350 MG/ML 100ML IJ ONE (13:50)
[2022-03-28] MEDS ORDERED: ANGIOMAX 250 MG VIAL IV ONE (14:00)
[2022-03-28] MEDS ORDERED: GLYCOPYRROLATE 0.2 MG/ML 1ML VIAL ONE (14:00)
[2022-03-28] MEDS ORDERED: PHENYLEPHRINE HCL 10 MG/ML VL ONE (14:00)
[2022-03-28] MEDS ORDERED: SODIUM CHL 0.9% 50 ML ONE (14:01)
[2022-03-28] MEDS ORDERED: NITROGLYCERIN 0.4 MG SL TAB SL PRN (14:30)
[2022-03-28] MEDS ORDERED: MORPHINE SULFATE INJ 2 MG/ml SYRG IV PRN (14:30)
[2022-03-28] MEDS ORDERED: CLOPIDOGREL BISULFATE 75 MG TAB ONE (14:50)
[2022-03-28] MEDS ORDERED: ASPirin 81 mg TAB ONE (14:51)
[2022-03-28] MEDS: glipiZIDE 5 MG TAB PO SCH (17:00)
[2022-03-28] MEDS: METOPROLOL TARTRATE 25 MG TAB PO SCH (21:28)
[2022-03-28] MEDS ORDERED: QUEtiapine FUMARATE 25 MG TAB PO SCH (22:00)
[2022-03-28] MEDS ORDERED: ALPRAZolam 0.5 MG TAB PO SCH (22:00)
[2022-03-28] MEDS ORDERED: ATORVASTATIN 20 MG TAB PO SCH (22:00)
[2022-03-29 05:00] VITALS: BP 121/66
[2022-03-29] MEDS: glipiZIDE 5 MG TAB PO SCH (06:53)
[2022-03-29 07:30] VITALS: BP 118/71
[2022-03-29 08:00] VITALS: BP 119/64
[2022-03-29] MEDS: METOPROLOL TARTRATE 25 MG TAB PO SCH (09:37)
[2022-03-29] MEDS ORDERED: CLOPIDOGREL BISULFATE 75 MG TAB PO SCH (10:00)
[2022-03-29] MEDS ORDERED: Ergocalciferol (Vitamin D2) 2,000 UNIT PO SCH (10:00)
[2022-03-29] MEDS ORDERED: ASPirin-EC 81 mg tab PO SCH (10:00)
[2022-03-29] MEDS ORDERED: LOSARTAN POTASSIUM 50 MG TAB PO SCH (10:00)
[2022-03-29] MEDS ORDERED: PANTOPRAZOLE 40 MG TAB PO SCH (10:00)
[2022-03-29 12:11] VITALS: BP 128/71
[2022-03-29 15:42] VITALS: BP 118/71
== END 2022-03-29 16:45 | disposition home or self-care (01) | DRG 36 ==
LOC: CATH 10:56 → TELE-EAST 14:34
PROVIDERS: ADMIT Internal Medicine Cardiovascular Disease; ATTEND Internal Medicine
PROC: 037K3DZ Dilation of Right Internal Carotid Artery with Intraluminal Device, Percutaneous Approach (ICD-10-PCS; principal; 2022-03-28)
PROC: B3181ZZ Fluoroscopy of Bilateral Internal Carotid Arteries using Low Osmolar Contrast (ICD-10-PCS; 2022-03-28)
PROC: B31G1ZZ Fluoroscopy of Bilateral Vertebral Arteries using Low Osmolar Contrast (ICD-10-PCS; 2022-03-28)
DX: I65.23 Occlusion and stenosis of bilateral carotid arteries (principal); Z20.822 Contact with and (suspected) exposure to COVID-19; E11.9 Type 2 diabetes mellitus without complications; E78.5 Hyperlipidemia, unspecified; I10 Essential (primary) hypertension; I25.10 Atherosclerotic heart disease of native coronary artery without angina pectoris; I25.2 Old myocardial infarction; Z95.0 Presence of cardiac pacemaker; Z95.1 Presence of aortocoronary bypass graft
CPT/HCPCS: 82962; 99152; G0378

== ENCOUNTER → 2022-05-03 | Outpatient (CLI) | payer OTHER | END | disposition home or self-care (01) | LOC: Rad HDHVI 13:52 | PROVIDERS: ATTEND Internal Medicine Cardiovascular Disease | DX: I65.21 Occlusion and stenosis of right carotid artery (principal); I73.9 Peripheral vascular disease, unspecified | CPT/HCPCS: 93880 ==

== ENCOUNTER → 2022-08-07 | Outpatient (CLI) | payer OTHER ==
[2022-08-07 12:18] LABS: Basophils # (auto) 0 10 ^3/uL (0-0.2); Basophils % (auto) 0.5 % (0.0-2.0); Eosinophils # (auto) 0.3 10 ^3/uL (0-0.8); Eosinophils % (auto) 3.4 % (0.0-7.0); Hematocrit 45.5 % (41.0-53.0); Hemoglobin 15.1 g/dL (13.5-17.5); Lymphocytes # (auto) 1.9 10 ^3/uL (0.4-5.4); Lymphocytes % (auto) 21.9 % (10.0-50.0); Mean Corpuscular Hemoglobin 29.1 pg (28.0-32.0); Mean Corpuscular Hgb Conc. 33.1 g/dL (32.0-36.0); Mean Corpuscular Volume 87.9 fL (80.0-100.0); Monocytes # (auto) 0.6 10 ^3/uL (0-1.3); Monocytes % (auto) 7.6 % (0.0-12.0); Neutrophils # (auto) 5.7 10 ^3/uL (1.6-8.6); Neutrophils % (auto) 66.6 % (37.0-80.0); Red Blood Cells 5.17 10^6/uL (4.5-5.90); Red Cell Distribution Width 13.3 % (11.8-14.3); White Blood Cell 8.5 10^3/uL (4.4-10.8)
[2022-08-07 12:44] LABS: Potassium 4.2 mmol/L (3.5-5.1)
[2022-08-07 12:53] LABS: Albumin 3.9 g/dL (3.4-5.0); BUN/Creatinine Ratio 15.3; Bilirubin, Total 0.8 mg/dL (0.2-1.0); Calcium 9.1 mg/dL (8.5-10.1); Total Protein 7.6 g/dL (6.4-8.2)
[2022-08-07 15:04] LABS: Urine Bacteria NONE SEEN /hpf (None Seen); Urine Blood Negative /uL (Negative); Urine Mucus FEW (None Seen); Urine Specific Gravity 1.043 (1.001-1.035); Urine WBC 3 /hpf (0 - 3)
== END | disposition home or self-care (01) ==
LOC: LAB 11:18
PROVIDERS: ATTEND Internal Medicine
DX: I10 Essential (primary) hypertension (principal); E11.69 Type 2 diabetes mellitus with other specified complication
CPT/HCPCS: 36415; 80053; 80061; 81001; 82043; 82570; 83036; 84439; 84443; 85025

== ENCOUNTER → 2022-09-12 | Outpatient (CLI) | payer OTHER ==
[2022-09-12 11:32] LABS: Potassium 4.1 mmol/L (3.5-5.1)
[2022-09-12 11:33] LABS: BUN/Creatinine Ratio 14.8 (10.0-20.0); Calcium 9.2 mg/dL (8.5-10.1)
== END | disposition home or self-care (01) ==
LOC: LAB 10:13
PROVIDERS: ATTEND Internal Medicine
DX: E11.22 Type 2 diabetes mellitus with diabetic chronic kidney disease (principal); N18.30 Chronic kidney disease, stage 3 unspecified
CPT/HCPCS: 36415; 80048

== ENCOUNTER → 2022-09-27 | Outpatient (CLI) | payer OTHER | END | disposition home or self-care (01) | LOC: Rad HDHVI 08:08 | PROVIDERS: ATTEND Internal Medicine Cardiovascular Disease | DX: I08.3 Combined rheumatic disorders of mitral, aortic and tricuspid valves (principal); I10 Essential (primary) hypertension | CPT/HCPCS: 93306 ==

== ENCOUNTER → 2022-10-04 | Outpatient (CLI) | payer OTHER ==
[~2022-10-04] VITALS: Ht 170.2 cm; Wt 90.3 kg
[~2022-10-04] MED LIST changes: +ADENOSINE 76 MG in GIVE UN-DILUTED 0 ML IV ONE; +ADENOSINE 90 MG/30 ML INJ IV ONE
== END | disposition home or self-care (01) ==
LOC: Rad HDHVI 08:53
PROVIDERS: ATTEND Internal Medicine Cardiovascular Disease
DX: I25.2 Old myocardial infarction (principal); I10 Essential (primary) hypertension; E11.9 Type 2 diabetes mellitus without complications; E78.5 Hyperlipidemia, unspecified; Z95.0 Presence of cardiac pacemaker; Z95.1 Presence of aortocoronary bypass graft
CPT/HCPCS: 78452; 93005; 96374; 96375; A9500; J0153

== ENCOUNTER → 2022-10-18 | Outpatient (CLI) | payer OTHER ==
[~2022-10-18] MED LIST changes: -ADENOSINE 76 MG in GIVE UN-DILUTED 0 ML IV ONE; -ADENOSINE 90 MG/30 ML INJ IV ONE
[2022-10-18 10:42] LABS: Basophils # (auto) 0 10 ^3/uL (0-0.2); Basophils % (auto) 0.5 % (0.0-2.0); Eosinophils # (auto) 0.2 10 ^3/uL (0-0.8); Eosinophils % (auto) 2.6 % (0.0-7.0); Hemoglobin 14.4 g/dL (13.5-17.5); Lymphocytes % (auto) 23.7 % (10.0-50.0); Mean Corpuscular Hemoglobin 28.6 pg (28.0-32.0); Mean Corpuscular Hgb Conc. 33.4 g/dL (32.0-36.0); Mean Corpuscular Volume 85.7 fL (80.0-100.0); Monocytes # (auto) 0.6 10 ^3/uL (0-1.3); Monocytes % (auto) 7.1 % (0.0-12.0); Neutrophils # (auto) 5.6 10 ^3/uL (1.6-8.6); Neutrophils % (auto) 66.1 % (37.0-80.0); Nucleated Red Blood Cells % 0.1 %; Red Blood Cells 5.02 10^6/uL (4.5-5.90); Red Cell Distribution Width 14.2 % (11.8-14.3); White Blood Cell 8.5 10^3/uL (4.4-10.8)
[2022-10-18 10:57] LABS: Urine Bacteria NONE SEEN /hpf (None Seen); Urine Blood Negative /uL (Negative); Urine Mucus FEW (None Seen); Urine WBC 1 /hpf (0 - 3)
[2022-10-18 11:05] LABS: Prostate Specific Antigen 0.78 ng/mL (0.0-4.0)
[2022-10-18 11:16] LABS: Albumin 3.7 g/dL (3.4-5.0); BUN/Creatinine Ratio 19.8 (10.0-20.0); Bilirubin, Total 0.8 mg/dL (0.2-1.0); Calcium 9.4 mg/dL (8.5-10.1); Potassium 4.2 mmol/L (3.5-5.1); Total Protein 7.5 g/dL (6.4-8.2)
== END | disposition home or self-care (01) ==
LOC: LAB 10:12
PROVIDERS: ATTEND Internal Medicine Cardiovascular Disease
DX: C61 Malignant neoplasm of prostate (principal); R00.2 Palpitations; I10 Essential (primary) hypertension; E11.9 Type 2 diabetes mellitus without complications; D64.9 Anemia, unspecified; E55.9 Vitamin D deficiency, unspecified; R53.1 Weakness; R30.0 Dysuria; D51.3 Other dietary vitamin B12 deficiency anemia
CPT/HCPCS: 36415; 80053; 80061; 81001; 82306; 82607; 83036; 84153; 84403; 84436; 84443; 85025

== ENCOUNTER → 2022-12-27 | Outpatient (CLI) | payer OTHER ==
[~2022-12-27] MED LIST changes: -LOSA-69 PO; +LOSA50TA46 PO
[2022-12-27 07:17] LABS: Urine Bacteria NONE SEEN /hpf (None Seen); Urine Blood Negative /uL (Negative); Urine Hyaline Cast FEW /lpf (0 - 2); Urine Specific Gravity 1.019 (1.001-1.035); Urine WBC 1 /hpf (0 - 3)
[2022-12-27 12:20] LABS: Potassium 4.2 mmol/L (3.5-5.1)
[2022-12-27 12:31] LABS: Albumin 3.5 g/dL (3.4-5.0); BUN/Creatinine Ratio 21.9 (10.0-20.0); Bilirubin, Total 0.5 mg/dL (0.2-1.0); Calcium 8.9 mg/dL (8.5-10.1); Total Protein 7.4 g/dL (6.4-8.2)
== END | disposition home or self-care (01) ==
LOC: LAB 06:39
PROVIDERS: ATTEND Internal Medicine
DX: E11.22 Type 2 diabetes mellitus with diabetic chronic kidney disease (principal); N18.9 Chronic kidney disease, unspecified; E78.5 Hyperlipidemia, unspecified
CPT/HCPCS: 36415; 80053; 80061; 81001; 83036

== ENCOUNTER → 2023-03-14 | Outpatient (CLI) | payer OTHER ==
[2023-03-14 11:12] LABS: Alanine Aminotransferase 16 U/L (7-40); Albumin 4.9 g/dL (3.2-4.8); Alkaline Phosphatase 91 U/L (46-116); Anion Gap 8 (5-15); Aspartate Aminotransferase 10 U/L (13-40); BUN/Creatinine Ratio 14.2 (10.0-20.0); Blood Urea Nitrogen 16 mg/dL (9-23); Calcium 9.3 mg/dL (8.7-10.4); Carbon Dioxide 23 mmol/L (20-30); Chloride 107 mmol/L (98-107); Glucose 245 mg/dL (74-106); Potassium 4.5 mmol/L (3.5-5.1); Sodium 138 mmol/L (136-145)
[2023-03-14 11:13] LABS: Total Protein 7.3 g/dL (5.7-8.2)
[2023-03-14 11:15] LABS: Bilirubin, Total 0.8 mg/dL (0.2-1.0)
[2023-03-14 13:10] LABS: Creatinine, Urine 201.46 mg/dL (30.0-125.0)
[2023-03-14 13:15] LABS: Triglycerides 156 mg/dL (< 150)
[2023-03-14 13:16] LABS: LDL Cholesterol 104 mg/dL (< 100)
[2023-03-14 13:17] LABS: Cholesterol 163 mg/dL (< 200); HDL Cholesterol 41 mg/dL (40-59)
== END | disposition home or self-care (01) ==
LOC: LAB 10:17
PROVIDERS: ATTEND Internal Medicine Endocrinology, Diabetes & Metabolism
DX: E11.65 Type 2 diabetes mellitus with hyperglycemia (principal)
CPT/HCPCS: 36415; 80053; 80061; 82043; 82570; 83036

== ENCOUNTER → 2023-05-24 | Outpatient (CLI) | payer OTHER ==
[2023-05-24 11:09] LABS: Basophils # (auto) 0 10 ^3/uL (0-0.2); Basophils % (auto) 0.4 % (0.0-2.0); Eosinophils # (auto) 0.2 10 ^3/uL (0-0.8); Eosinophils % (auto) 1.8 % (0.0-7.0); Hematocrit 43.8 % (41.0-53.0); Hemoglobin 14.5 g/dL (13.5-17.5); Lymphocytes # (auto) 2.2 10 ^3/uL (0.4-5.4); Mean Corpuscular Hemoglobin 29.1 pg (28.0-32.0); Mean Corpuscular Volume 88.2 fL (80.0-100.0); Monocytes # (auto) 0.7 10 ^3/uL (0-1.3); Monocytes % (auto) 7.3 % (0.0-12.0); Neutrophils # (auto) 6.1 10 ^3/uL (1.6-8.6); Neutrophils % (auto) 66.5 % (37.0-80.0); Nucleated Red Blood Cells % 0.1 %; Red Blood Cells 4.97 10^6/uL (4.5-5.90); Red Cell Distribution Width 13.4 % (11.8-14.3); White Blood Cell 9.2 10^3/uL (4.4-10.8)
[2023-05-24 11:18] LABS: Urine Bacteria FEW /hpf (None Seen); Urine Blood Negative /uL (Negative); Urine Clarity Clear (Clear); Urine Color Yellow (Yellow); Urine Mucus FEW (None Seen); Urine Protein, UAD 1+ (Negative); Urine Specific Gravity 1.024 (1.001-1.035); Urine Urobilinogen Normal (Negative); Urine WBC 2 /hpf (0 - 3); Urine pH 5.5 (5.0-8.0)
[2023-05-24 12:10] LABS: Triglycerides 160 mg/dL (< 150)
[2023-05-24 12:11] LABS: Alanine Aminotransferase 27 U/L (7-40); Albumin 4.6 g/dL (3.2-4.8); Alkaline Phosphatase 95 U/L (46-116); Anion Gap 8 (5-15); Aspartate Aminotransferase 16 U/L (13-40); BUN/Creatinine Ratio 16.8 (10.0-20.0); Bilirubin, Total 0.8 mg/dL (0.2-1.0); Blood Urea Nitrogen 23 mg/dL (9-23); Calcium 9.9 mg/dL (8.5-10.1); Carbon Dioxide 27 mmol/L (20-30); Chloride 101 mmol/L (98-107); Cholesterol 176 mg/dL (< 200); Glucose 278 mg/dL (74-106); HDL Cholesterol 40 mg/dL (40-59); LDL Cholesterol 120 mg/dL (< 100); Potassium 4.7 mmol/L (3.5-5.1); Sodium 136 mmol/L (136-145); Total Protein 7.5 g/dL (5.7-8.2)
== END | disposition home or self-care (01) ==
LOC: LAB 10:36
PROVIDERS: ATTEND Internal Medicine
DX: Z12.11 Encounter for screening for malignant neoplasm of colon (principal); Z00.01 Encounter for general adult medical examination with abnormal findings; I13.0 Hypertensive heart and chronic kidney disease with heart failure and stage 1 through stage 4 chronic kidney disease, or unspecified chronic kidney disease; E11.22 Type 2 diabetes mellitus with diabetic chronic kidney disease; E11.69 Type 2 diabetes mellitus with other specified complication; E55.9 Vitamin D deficiency, unspecified; E78.2 Mixed hyperlipidemia
CPT/HCPCS: 36415; 80053; 80061; 81001; 82306; 83036; 84439; 84443; 85025

== ENCOUNTER → 2023-06-04 | Outpatient (CLI) | payer OTHER | END | disposition home or self-care (01) | LOC: LAB 16:28 | PROVIDERS: ATTEND Internal Medicine | DX: Z12.11 Encounter for screening for malignant neoplasm of colon (principal); Z00.01 Encounter for general adult medical examination with abnormal findings; E11.69 Type 2 diabetes mellitus with other specified complication; I13.0 Hypertensive heart and chronic kidney disease with heart failure and stage 1 through stage 4 chronic kidney disease, or unspecified chronic kidney disease; E11.22 Type 2 diabetes mellitus with diabetic chronic kidney disease; I50.9 Heart failure, unspecified; N18.9 Chronic kidney disease, unspecified; E78.2 Mixed hyperlipidemia | CPT/HCPCS: 82274 ==

== ENCOUNTER → 2023-06-21 | Outpatient (CLI) | payer OTHER ==
[2023-06-21 08:09] LABS: Creatinine, Urine 232.7 mg/dL (30.0-125.0); Urine Protein/Creatinine Ratio 0.15
[2023-06-21 08:10] LABS: Triglycerides 195 mg/dL (< 150)
[2023-06-21 08:11] LABS: LDL Cholesterol 109 mg/dL (< 100)
[2023-06-21 08:12] LABS: Cholesterol 166 mg/dL (< 200); HDL Cholesterol 39 mg/dL (40-59)
== END | disposition home or self-care (01) ==
LOC: LAB 07:11
PROVIDERS: ATTEND Internal Medicine Endocrinology, Diabetes & Metabolism
DX: E11.65 Type 2 diabetes mellitus with hyperglycemia (principal)
CPT/HCPCS: 36415; 80061; 82043; 82570; 83036; 84156

== ENCOUNTER → 2023-08-08 | Outpatient (CLI) | payer OTHER ==
[2023-08-08 08:02] LABS: Alanine Aminotransferase 26 U/L (7-40); Albumin 4.3 g/dL (3.2-4.8); Alkaline Phosphatase 88 U/L (46-116); Anion Gap 8 (5-15); Aspartate Aminotransferase 21 U/L (13-40); Blood Urea Nitrogen 16 mg/dL (9-23); Calcium 9.7 mg/dL (8.5-10.1); Carbon Dioxide 24 mmol/L (20-30); Chloride 105 mmol/L (98-107); Glucose 247 mg/dL (74-106); Potassium 4.3 mmol/L (3.5-5.1); Sodium 137 mmol/L (136-145)
[2023-08-08 08:03] LABS: Bilirubin, Total 0.9 mg/dL (0.2-1.0); Total Protein 6.8 g/dL (5.7-8.2)
[2023-08-08 08:07] LABS: Urine Bacteria FEW /hpf (None Seen); Urine Blood Negative /uL (Negative); Urine Clarity Clear (Clear); Urine Color Yellow (Yellow); Urine Mucus FEW (None Seen); Urine Protein, UAD TRACE (Negative); Urine Specific Gravity 1.024 (1.001-1.035); Urine Urobilinogen Normal (Negative); Urine WBC 1 /hpf (0 - 3); Urine pH 5.5 (5.0-8.0)
== END | disposition home or self-care (01) ==
LOC: LAB 07:15
PROVIDERS: ATTEND Internal Medicine
DX: I12.9 Hypertensive chronic kidney disease with stage 1 through stage 4 chronic kidney disease, or unspecified chronic kidney disease (principal); E11.22 Type 2 diabetes mellitus with diabetic chronic kidney disease; N18.2 Chronic kidney disease, stage 2 (mild); R82.90 Unspecified abnormal findings in urine
CPT/HCPCS: 36415; 80053; 81001

== ENCOUNTER → 2024-08-06 | Outpatient (CLI) | payer OTHER ==
[~2024-08-06] MED LIST changes: -GLIP5TAB12 PO; +GLIP5TAB21 PO; +LOSA-534 PO; -LOSA50TA46 PO
== END | disposition home or self-care (01) ==
LOC: Rad HDHVI 11:08
PROVIDERS: ATTEND Internal Medicine Cardiovascular Disease
DX: Z95.0 Presence of cardiac pacemaker (principal)
CPT/HCPCS: 93306

== ENCOUNTER → 2024-09-04 | Outpatient (CLI) | payer OTHER ==
[2024-09-04 11:53] LABS: Basophils # (auto) 0 10 ^3/uL (0-0.2); Basophils % (auto) 0.6 % (0.0-2.0); Eosinophils # (auto) 0.2 10 ^3/uL (0-0.8); Eosinophils % (auto) 2.5 % (0.0-7.0); Hematocrit 44.7 % (41.0-53.0); Hemoglobin 14.7 g/dL (13.5-17.5); Lymphocytes % (auto) 25.1 % (10.0-50.0); Mean Corpuscular Hemoglobin 28.5 pg (28.0-32.0); Mean Corpuscular Hgb Conc. 32.9 g/dL (32.0-36.0); Mean Corpuscular Volume 86.6 fL (80.0-100.0); Monocytes # (auto) 0.6 10 ^3/uL (0-1.3); Monocytes % (auto) 8.1 % (0.0-12.0); Neutrophils # (auto) 5.1 10 ^3/uL (1.6-8.6); Neutrophils % (auto) 63.7 % (37.0-80.0); Nucleated Red Blood Cells % 0.1 %; Platelet Count (auto) 234 10^3/uL (140-450); Red Blood Cells 5.16 10^6/uL (4.5-5.90)
[2024-09-04 12:03] LABS: Urine Bacteria FEW /hpf (None Seen); Urine Blood Negative /uL (Negative); Urine Clarity Clear (Clear); Urine Color Yellow (Yellow); Urine Mucus FEW (None Seen); Urine Protein, UAD TRACE (Negative); Urine Specific Gravity 1.032 (1.001-1.035); Urine Squamous Epithelial Cell None Seen /hpf (<5); Urine Urobilinogen Normal (Negative); Urine WBC < 1 /HPF (0-3)
[2024-09-04 12:24] LABS: Alanine Aminotransferase 18 U/L (7-40); Albumin 4.5 g/dL (3.2-4.8); Anion Gap 8 (5-15); Aspartate Aminotransferase 14 U/L (13-40); BUN/Creatinine Ratio 13.4 (10.0-20.0); Bilirubin, Total 0.6 mg/dL (0.2-1.0); Blood Urea Nitrogen 16 mg/dL (9-23); Calcium 10.1 mg/dL (8.7-10.4); Carbon Dioxide 28 mmol/L (20-31); Chloride 100 mmol/L (98-107); Creatinine, Urine 124.87 mg/dL (30.0-125.0); HDL Cholesterol 44 mg/dL (40-59); Potassium 4.6 mmol/L (3.5-5.1); Sodium 136 mmol/L (136-145); Total Protein 7.4 g/dL (5.7-8.2)
[2024-09-04 12:27] LABS: Alkaline Phosphatase 130 U/L (46-116); Cholesterol 240 mg/dL (< 200); Glucose 304 mg/dL (74-106); LDL Cholesterol 177 mg/dL (< 100); Triglycerides 184 mg/dL (< 150)
[2024-09-04 13:53] LABS: Prostate Specific Antigen 0.76 ng/mL (0.0-4.0)
[2024-09-04 13:57] LABS: Free T4 (Free Thyroxine) 1.07 ng/dL (0.89-1.76)
== END | disposition home or self-care (01) ==
LOC: LAB 11:23
PROVIDERS: ATTEND Internal Medicine
DX: I12.9 Hypertensive chronic kidney disease with stage 1 through stage 4 chronic kidney disease, or unspecified chronic kidney disease (principal); E11.22 Type 2 diabetes mellitus with diabetic chronic kidney disease; N18.2 Chronic kidney disease, stage 2 (mild); E11.29 Type 2 diabetes mellitus with other diabetic kidney complication; E78.2 Mixed hyperlipidemia; R80.9 Proteinuria, unspecified; R32 Unspecified urinary incontinence
CPT/HCPCS: 36415; 80053; 80061; 81001; 82043; 82570; 83036; 84153; 84439; 84443; 85025

== ENCOUNTER 2024-10-07 17:20 | Inpatient (IN) | payer OTHER ==
[~2024-10-07] VITALS: Ht 170.2 cm; Wt 91.0 kg
[~2024-10-07 17:20] MED LIST changes: -ASPI81CH59 PO; -FURO1TAB33 PO; -POTA-36 PO
--- NOTE | 2024-10-07 17:30 | ECG ---
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
--- NOTE | 2024-10-07 17:44 | ED.PDOC ---
HPI Comments HPI: poor historian. 74-year-old male presents to the emergency department with a chief complaint of left chest pain onset today. Patient was visiting daughter when he began experiencing chest pain, pressure sensation, rates pain 4/10 as well as cold sweats. Patient was eating breakfast with brother yesterday at noon when he began experiencing chest pain which resolved on its own. Pain recurred again today. Has appointment with Dr. Ng on 10/09/24 for an angiogram. No other symptoms or modifying factors present at this time. Patient is not on aspirin Vitals Temperature: 97.9 F Respiratory rate: 16 SpO2: 96% Heart rate: 109 Blood pressure: 161/90 Past Medical History: CAD, CVA, AL, HTN, HLD, DM Past Surgical History: pacemaker Social History: none HPI: Poor Historian. REVIEW OF SYSTEMS: CONSTITUTIONAL: Denies acute: fever, chills, HEAD: Denies acute: headache, photophobia Eyes: Denies acute: Double vision, vision loss, eye pain, eye discharge. EARS: Denies acute: tinnitus, hearing loss, ear discharge, ear pain, THROAT: Denies acute: sore throat, swelling, difficulty swallowing , pain with swallowing, change in voice. NECK: Denies acute: neck pain, neck swelling, stiff neck. HEART: Denies acute : , palpitations, LUNGS: Denies acute: SOB, wheezing, cough, hemoptysis ABDOMEN: Denies acute: abdominal pain, Nausea, Vomiting, diarrhea, melena , hematemesis, hematochezia SKIN: Denies acute: rash, redness, lesions, itchiness. EXTREMITIES: Denies acute: calf pain, numbness, tingling, weakness, denies pain in extremity. Denies acute: Low back pain. Neuro: Denies acute: focal neurological deficit, motor or sensory focal neurological deficit, tremors, seizure like activity, confusion, dizziness, change in mental status, loss of bowel or bladder function, cauda equina like symptoms. : Denies acute: dysuria, hematuria, flank pain, increase in urinary frequency. PSYCH: Denies acute: hallucination, suicidal ideation, homicidal ideation. PHYSICAL EXAM: General: ----[id number]----acute distress, awake and alert. Head: normocephalic, atraumatic. Neck: supple, trachea is midline, no swelling. Throat: Normal phonation. Eyes:, no erythema, no purulent discharge, no proptosis, no icterus. Heart: regular rate, regular rhythm, no significant murmur appreciated. Lungs: no apparent respiratory distress, Able to speak in full sentences. No wheezing, no rhonchi, no crackles. No stridors Clear to auscultation bilaterally. Abdomen: non tender to palpation, non distended, soft, no guarding, no rebound, + bowel sounds. Neuro: Awake, Alert, oriented to name, self, situation, follows commands GCS=15. Speech is normal. Skin: no petechia, no purpura, no cyanosis, non-pale, not jaundice. Lower extremities: --trace bilateral - Pitting edema no deformity, no focal swelling, no calf TTP. Makes eye contact. moves all four extremities. Face: no apparent facial droop. ED COURSE: Chief Complaint: Chest Pain Time Seen by MD: 17:26 Primary Care Provider: Hernandez Reviewed Notes: Nurses Notes, Medications, Allergies Allergies: Coded Allergies: NO KNOWN ALLERGIES (Unverified , 10/07/24) Home Meds Active Scripts Clopidogrel Bisulfate (Plavix) 75 Mg Tab, 1 TAB PO DAILY for 30 Days, #30 TAB 1 Refill Prov:OLLIE AGUILAR MD 10/14/21 Reported Medications Sitagliptin Phosphate (Januvia) 100 Mg Tab, 1 TAB PO DAILY for diabetes, #30 TAB 5 Refills 10/07/24 Atorvastatin Calcium (ATORVASTATIN CALCIUM) 20 Mg Tab, 1 TAB PO DAILY, #30 TAB 5 Refills 10/07/24 Aspirin (Aspirin) 325 Mg Tab, 325 MG PO DAILY for last dose 3 weeks ago, MG 10/07/24 Hydrocodone-Acetaminophen (Hydrocodone Bitartrate/AC 5-325 mg) 1 Tab Tab, 1 TAB PO Q6HPRN PRN for PAIN, TAB 03/24/22 Atorvastatin Calcium (ATORVASTATIN CALCIUM) 40 Mg Tab, 1 TAB PO DAILY for HYPERLIPIDEMIA, #30 TAB 5 Refills 03/24/22 Losartan Potassium (Losartan Potassium) 50 Mg Tab, 50 MG PO DAILY for HTN for 30 Days, MG 03/24/22 Omeprazole (Gnp Omeprazole) 20 Mg Tab, 1 TAB PO DAILY for GERD, #90 TAB 1 Refill 10/10/21 Glipizide (Glipizide) 5 Mg Tab, 5 MG PO BID for DIABETES, MG 10/10/21 Quetiapine Fumerate (QUETIAPINE FUMARATE) 25 Mg Tab, 100 MG PO HS for SLEEP, TAB 05/08/17 Metoprolol Succinate (Metoprolol Succinate Er) 25 Mg Tab, 25 MG PO BID for 30 Days, MG 10/04/16 Information Source: Patient, Spouse Mode of Arrival: Ambulatory Severity: Moderate Timing: Hours Duration: Since onset Prehospital treatment: None Location: Chest (L) Radiation: No Radiation Quality: Pressure Onset: At Rest Cardiac Risk Factors: Hyperlipidemia, HTN, Diabetes PE Risk Factors: None History of: Similar pain in past, AL Modifying Factors: Nothing Past Medical History PAST MEDICAL HISTORY: CAD, CVA, DM, High Lipids, HTN, AL Surgical History: CABG, Pacemaker Family History Family History: Unobtainable Social History Smoker: Non-Smoker Alcohol: Denies ETOH Use Drugs: Denies Drug Use Lives In: Home Was a procedure done? Was a procedure done?: No CP Differential Dx Differential Diagnosis: N/A Differential Diagnosis: Other (Ddx include but not limitied to gastritis, musculoskeletal pain, radiculopathy, atypical chest pain, dissection, aneurysm, ACS, unstable angina, hiatal hernia, GERD, anxiety, costochondritis, PE, pneumothroax, neoplasm, cardiac ischemia, drug abuse, anemia.) X-Ray, Labs, Meds, VS Vital Signs Date Time Temp Pulse Resp B/P (MAP) Pulse Ox O2 Delivery O2 Flow Rate FiO2 10/07/24 18:24 84 10/07/24 17:34 97.9 109 16 161/90 (113) 96 97.9 10/07/24 17:28 107 Lab Test 10/07/24 18:34 10/07/24 17:35 Range/Units Lactic Acid Level 2.9 *H 0.4-2.0 mmol/L Troponin I High Sensitivity 99437 *H 82134 *H </=54 ng/L White Blood Count 12.7 #H 4.4-10.8 10^3/uL Red Blood Count 5.18 4.5-5.90 10^6/uL Hemoglobin 15.0 13.5-17.5 g/dL Hematocrit 45.1 41.0-53.0 % Mean Corpuscular Volume 86.9 80.0-100.0 fL Mean Corpuscular Hemoglobin 28.9 28.0-32.0 pg Mean Corpuscular Hemoglobin Concent 33.3 32.0-36.0 g/dL Red Cell Distribution Width 14.5 H 11.8-14.3 % Platelet Count 243 140-450 10^3/uL Mean Platelet Volume 9.0 6.9-10.8 fL Neutrophils (%) (Auto) 76.8 37.0-80.0 % Lymphocytes (%) (Auto) 15.7 10.0-50.0 % Monocytes (%) (Auto) 6.3 0.0-12.0 % Eosinophils (%) (Auto) 0.6 0.0-7.0 % Basophils (%) (Auto) 0.6 0.0-2.0 % Neutrophils # (Auto) 9.8 H 1.6-8.6 10 ^3/uL Lymphocytes # (Auto) 2.0 0.4-5.4 10 ^3/uL Monocytes # (Auto) 0.8 0-1.3 10 ^3/uL Eosinophils # (Auto) 0.1 0-0.8 10 ^3/uL Basophils # (Auto) 0.1 0-0.2 10 ^3/uL Nucleated Red Blood Cells 0.1 % Prothrombin Time 10.7 9.3-11.8 sec Prothrombin Time INR 1.01 0.9-1.15 Activated Partial Thromboplast Time 27.7 24.5-34.5 SEC Sodium Level 132 L 136-145 mmol/L Potassium Level 4.7 3.5-5.1 mmol/L Chloride Level 99 98-107 mmol/L Carbon Dioxide Level 20 20-31 mmol/L Anion Gap 13 5-15 Blood Urea Nitrogen 18 9-23 mg/dL Creatinine 1.39 H 0.700-1.30 mg/dL Glomerular Filtration Rate Calc 53 >90 mL/min BUN/Creatinine Ratio 12.9 10.0-20.0 Serum Glucose 440 *H 74-106 mg/dL Calcium Level 10.1 8.7-10.4 mg/dL Magnesium Level 1.8 1.6-2.6 mg/dL Total Bilirubin 0.7 0.2-1.0 mg/dL Aspartate Amino Transferase (AST) 137 H 13-40 U/L Alanine Aminotransferase (ALT) 28 7-40 U/L Alkaline Phosphatase 123 H 46-116 U/L B-Type Natriuretic Peptide 1066.46 0-100 pg/mL Total Protein 7.4 5.7-8.2 g/dL Albumin 4.5 3.2-4.8 g/dL Current Medications Medications (Trade) Dose Ordered Sig/Viral Route Start Time Stop Time Status Last Admin Aspirin (Ecotrin Enteric Coated Tablet) 325 mg ONCE ONCE PO 10/07/24 17:45 10/07/24 17:46 DC 10/07/24 20:02 Nitroglycerin (Ntrostat Sublingual) 0.4 mg ONCE ONCE SL 10/07/24 17:45 10/07/24 17:46 DC 10/07/24 20:19 Furosemide (Lasix Injection) 40 mg ONCE ONCE IV 10/07/24 18:45 10/07/24 18:55 DC 10/07/24 20:02 Heparin Sodium (Porcine) 4,000 units ONCE ONCE IV 10/07/24 18:45 10/07/24 19:53 DC 10/07/24 20:07 Heparin Sodium/ Dextrose 250 ml @ 10 mls/hr Q24H IV 10/07/24 18:45 10/07/24 20:06 [place] [id number] Ph: [phone] DIAGNOSTIC IMAGING Diagnostic Imaging Report : [id number] Signed PATIENT: DESTIN BURNETTT: [id number] UNIT: [id number] : 1950 LOC: OVERFLOW ROOM / BED: [address] [place] [address] AGE / SEX: 74 / M ADM STATUS: ADM IN SERVICE ORDERING PHYSICIAN: ALBANIA ODOM DO PROCEDURE(s): CXRP - CHEST PORTABLE REASON: cp ORDER NUMBER(s): [id number], ACCESSION NUMBER(s): [id number] CHEST RADIOGRAPH Indication: cp Technique: Single frontal view of the chest was obtained COMPARISON: None FINDINGS: Lines and Tubes: Dual-lead pacemaker again noted overlying left chest wall. Lungs: Lung volumes are low with mild bibasalar subsegmental atelectasis. No pulmonary edema. Pleura: No effusion.No pneumothorax. Cardiomediastinal contours: Unremarkable Bones: Unremarkable. Sternotomy. IMPRESSION: Low lung volumes with mild bibasilar subsegmental atelectasis. No pulmonary edema. No significant change compared to the prior chest x-ray from earlier the same day. ATED BY: LUIS M TOLEDO MD DICTATED DATE/TIME: 10/07/241952 SIGNED BY: LUIS M TOLEDO MD SIGNED DATE/TIME: 10/07/241952 CC: Time of 1ST Reevaluation: 17:55 Reevaluation 1ST: Unchanged Time of 2ND Reevaluation: 18:45 (The case was discussed with the cardiology on- call team (HPI, physical exam, labs and diagnostic tests that were available at the time of disposition, ED course, treatment plan) on the phone. They recommend continuing to reach out to Dr. Ng the patient's joiner enter start the patient on heparin bolus and a drip. We are able to reach the patient joiner within [address] hour then to contact Dr. Vega ) Time of 3RD Reevaluation: 18:56 (At this time, The case was discussed with the the joiner Dr. Ng (HPI, physical exam, labs and diagnostic tests that were available at the time of disposition, ED course, treatment plan) on the phone. He is very familiar with this patient. He agrees with our management. He will follow in consult. Requests that we admit the patient to the medicine team. No further recommendations.) Patient Education/Counseling: Diagnosis, Treatment Family Education/Counseling: Diagnosis, Treatment Comments Patient presented with the above HPI.-cardiac-----workup was initiated. patient was found with the above mentioned diagnosis. the following medications were ordered: please refer to order lists of meds and tests obtained by myself Dr. Odom. Patient ED course and VS have been stabilized. Patient has been reassessed in the ED and remained in a stable condition. Pertinent incidental findings were discussed with the patient and/or family. Patient/family voices understanding and is agreeable with plan. Patient has been observed in the ED adequate length of time to insure improvement/stability. Escalation of care considered: Consideration of escalation to observation or admission Cardiology was consulted. Heparin bolus and a drip were initiated. Aspirin and nitroglycerin was ordered. The joiner Dr. Max who is familiar with this patient was updated of new EKG findings and rising troponin levels. He said he will do the angiogram tomorrow. Patient was found with slight elevation of WBC and elevated lactic acid. Rocephin empiric antibiotics was initiated. Patient has history of severe CHF. We avoided volume overloading the patient. Patient was ADMITTED to the medicine team for further evaluation and treatment of their presentation. All the reports of any imaging studies that were ordered by myself were reviewed by myself. Departure 1 Departure Time of Disposition: 18:23 Impression: Primary Impression: Chest pain Additional Impressions: NSTEMI (non-ST elevated myocardial infarction) CHF exacerbation Disposition: ADMITTED INPATIENT Admit to: Tele Condition: Guarded Discharged With: Self Critical Care Note Critical Care Time?: Yes (55 min-critical care time only) Heart Score Heart Score: Heart Score Response (Comments) Value History Highly Suspicious 2 EKG Normal 0 Age >65 2 Risk Factors >3 or Hx ASHD 2 Troponin >3 x's Normal limit 2 Total 8 I personally scribed for ALBANIA ODOM DO ([email or web address]) on 10/07/24 at 17:44. Electro nically submitted by Sravanthi Krueger ([email or web address]). ALBANIA ODOM DO Oct 07, 2024 17:44
[2024-10-07 18:05] LABS: Basophils # (auto) 0.1 10 ^3/uL (0-0.2); Basophils % (auto) 0.6 % (0.0-2.0); Eosinophils # (auto) 0.1 10 ^3/uL (0-0.8); Eosinophils % (auto) 0.6 % (0.0-7.0); Hematocrit 45.1 % (41.0-53.0); Lymphocytes % (auto) 15.7 % (10.0-50.0); Mean Corpuscular Hemoglobin 28.9 pg (28.0-32.0); Mean Corpuscular Hgb Conc. 33.3 g/dL (32.0-36.0); Mean Corpuscular Volume 86.9 fL (80.0-100.0); Monocytes # (auto) 0.8 10 ^3/uL (0-1.3); Monocytes % (auto) 6.3 % (0.0-12.0); Neutrophils # (auto) 9.8 10 ^3/uL (1.6-8.6); Neutrophils % (auto) 76.8 % (37.0-80.0); Nucleated Red Blood Cells % 0.1 %; Platelet Count (auto) 243 10^3/uL (140-450); Red Blood Cells 5.18 10^6/uL (4.5-5.90); Red Cell Distribution Width 14.5 % (11.8-14.3); White Blood Cell 12.7 10^3/uL (4.4-10.8)
[2024-10-07 18:17] LABS: Alanine Aminotransferase 28 U/L (7-40); Albumin 4.5 g/dL (3.2-4.8); Anion Gap 13 (5-15); BUN/Creatinine Ratio 12.9 (10.0-20.0); Blood Urea Nitrogen 18 mg/dL (9-23); Calcium 10.1 mg/dL (8.7-10.4); Chloride 99 mmol/L (98-107); Magnesium 1.8 mg/dL (1.6-2.6); Potassium 4.7 mmol/L (3.5-5.1); Total Protein 7.4 g/dL (5.7-8.2)
[2024-10-07 18:18] LABS: Bilirubin, Total 0.7 mg/dL (0.2-1.0)
--- NOTE | 2024-10-07 18:27 | ECG ---
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
[2024-10-07 18:29] LABS: Alkaline Phosphatase 123 U/L (46-116); Aspartate Aminotransferase 137 U/L (13-40); Carbon Dioxide 20 mmol/L (20-31); Sodium 132 mmol/L (136-145)
[2024-10-07 18:33] LABS: Glucose 440 mg/dL (74-106)
[2024-10-07 19:09] LABS: Lactic Acid w/Reflex 2.9 mmol/L (0.4-2.0)
[2024-10-07 19:24] LABS: INR 1.01 (0.9-1.15); Partial Thromboplastin Time 27.7 SEC (24.5-34.5); Prothrombin Time 10.7 sec (9.3-11.8)
[2024-10-07] MEDS ORDERED: DEXTROSE (50%) 50ML SYRG IV PRN (19:45)
[2024-10-07] MEDS ORDERED: MORPHINE SULFATE INJ 2 MG/ml SYRG IV PRN (19:45)
[2024-10-07] MEDS ORDERED: NITROGLYCERIN 0.4 MG SL TAB SL PRN (19:45)
--- NOTE | 2024-10-07 19:55 | DVH ---
CHEST RADIOGRAPH Indication: cp Technique: Single frontal view of the chest was obtained COMPARISON: None FINDINGS: Lines and Tubes: Dual-lead pacemaker again noted overlying left chest wall. Lungs: Lung volumes are low with mild bibasalar subsegmental atelectasis. No pulmonary edema. Pleura: No effusion.No pneumothorax. Cardiomediastinal contours: Unremarkable Bones: Unremarkable. Sternotomy. IMPRESSION: Low lung volumes with mild bibasilar subsegmental atelectasis. No pulmonary edema. No significant kelly nge compared to the prior chest x-ray from earlier the same day.
[2024-10-07 20:00] VITALS: PULSE 98; RESP 16; O2SAT 93
[2024-10-07] MEDS: FUROSEMIDE 40 MG/4 ML VIAL IV ONE (20:02)
[2024-10-07] MEDS: ASPirin-EC 325mg tab PO ONE (20:02)
[2024-10-07] MEDS: HEPARIN DRIP/D5W 100UNITS/ML 250 ML IV SCH (20:06)
[2024-10-07] MEDS: HEPARIN SODIUM (PORCINE) 5000 UNITS/ML 1ML VIAL IV ONE (20:07)
[2024-10-07] MEDS: NITROGLYCERIN 0.4 MG SL TAB SL ONE (20:19)
--- NOTE | 2024-10-07 20:33 | CONS ---
Pharmacy Clinical Information: HEPARIN PER PHARMACY SPOKE TO BRIDGER CURTIS REGARDING HEPARIN DRIP ORDER CURRENT aPTT: 27.7 TODAY 10/07 AT 1725 BOLUS: YES 4000 UNITS IVP X1 INITIAL HEPARIN DRIP RATE = 1000 UNITS/HR STARTED BY KIRSTEN TODAY 10/07 AT 2006 NEXT aPTT: 10/08/24 AT 0200 BRIDGER CURTIS READ BACK BOLUS DOSE 4000 UNITS IVP X1 THEN HEPARIN DRIP RATE 1000 UNITS/HR SHADE Mazariegos Oct 07, 2024 20:33
--- NOTE | 2024-10-07 20:34 | ECG ---
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
[2024-10-07] MEDS: SODIUM CHLOR 0.9% PF (SALINE LOCK) 10ML VIAL/SYR IV SCH (22:05)
[2024-10-07] MEDS: METOPROLOL TARTRATE 25 MG TAB PO SCH (22:16)
[2024-10-07] MEDS: ATORVASTATIN 20 MG TAB PO SCH (22:16)
[2024-10-07] MEDS: cefTRIAXone 1GM/50ML D5W 50 ML IV SCH (22:19)
[2024-10-08] MEDS: ACCU-CHEK COMFORT CURVE STRIP VI SCH ×2 (00:17→17:17)
--- NOTE | 2024-10-08 00:22 | DVHHP2 ---
History of Present Illness Reason for Visit: Chest pain History of Present Illness 74-year-old male presents for evaluation of chest pain. Patient presents with a one day history of left-sided pressure-like chest pain. Patient denies nausea, vomiting shortness for breath. A follow-up appointment with his junior data analyst on 10/09/2024. Past Medical History Dyslipidemia, diabetes mellitus, hypertension, mi, CVA, CAD Past Surgical History Pacemaker Family History Noncontributory Smoke: No ALCOHOL: none Drugs: None Lives: with Family Review of Systems Review of Systems Review of systems are currently negative otherwise addressed in HPI. Allergies: Coded Allergies: NO KNOWN ALLERGIES (Unverified , 10/07/24) Medications Current Medications Medications Dose Ordered Sig/Viral Route Start Time Stop Time Status Last Admin Dose Admin Heparin Sodium/ Dextrose 250 ml @ 10 mls/hr Q24H IV 10/07/24 18:45 10/07/24 20:06 10 MLS/HR Sodium Chloride 10 ml Q8HR IV 10/07/24 22:00 10/07/24 22:05 10 ML Metoprolol Tartrate 25 mg BID PO 10/07/24 22:00 10/07/24 22:16 25 MG Atorvastatin Calcium 40 mg HS PO 10/07/24 22:00 10/07/24 22:16 40 MG Clopidogrel Bisulfate 75 mg DAILY PO 10/08/24 10:00 Losartan Potassium 50 mg DAILY PO 10/08/24 10:00 Furosemide 20 mg DAILY IV 10/08/24 10:00 Diagnostic Test (Pha) 1 strip Q6HR 10/08/24 00:00 Insulin Human Regular Q6HR SC 10/08/24 00:00 Dextrose 50 ml UD PRN IV 10/07/24 19:45 Ondansetron HCl 4 mg Q4HP PRN IV 10/07/24 19:45 Nitroglycerin 0.4 mg Q5MINP PRN SL 10/07/24 19:45 Morphine Sulfate 2 mg Q30M PRN IV 10/07/24 19:45 Ceftriaxone Sodium 50 ml @ 100 mls/hr DAILY@09 IV 10/07/24 20:52 10/07/24 22:19 100 MLS/HR Exam Vital Signs Vital Signs Date Time Temp Pulse Resp B/P (MAP) Pulse Ox O2 Delivery O2 Flow Rate FiO2 10/08/24 00:10 65 143/65 10/07/24 20:00 16 93 Room Air* 0 21 10/07/24 20:00 98.1 98.1 Exam Gen: 74-year-old male mild distress Skin: Warm, dry, normal color and texture, no rash. HEENT: Normocephalic atraumatic, mucous membranes moist and pink. Neck: Cervical and supraclavicular nodes normal without enlargement, trachea is midline, thyroid gland is normal without masses. Pulmonary: Clear to auscultation and percussion bilaterally. Cardiac: Regular rate and rhythm. No murmur Abdomen: Soft, nontender, nondistended, bowel sounds present all 4 quadrants, no guarding, no rigidity, no organomegaly. Extremities: No cyanosis, clubbing, no edema Neuro: Cranial nerves II through XII grossly intact, normal affect and speech, no focal motor deficits. Labs/Xrays ORDERING PHYSICIAN: ALBANIA ODOM DO PROCEDURE(s): CXRP - CHEST PORTABLE REASON: cp ORDER NUMBER(s): [id number], ACCESSION NUMBER(s): [id number] CHEST RADIOGRAPH Indication: cp Technique: Single frontal view of the chest was obtained COMPARISON: None FINDINGS: Lines and Tubes: Dual-lead pacemaker again noted overlying left chest wall. Lungs: Lung volumes are low with mild bibasalar subsegmental atelectasis. No pulmonary edema. Pleura: No effusion.No pneumothorax. Cardiomediastinal contours: Unremarkable Bones: Unremarkable. Sternotomy. IMPRESSION: Low lung volumes with mild bibasilar subsegmental atelectasis. No pulmonary edema. No significant change compared to the prior chest x-ray from earlier the same day. Labs Test 10/07/24 21:05 10/07/24 20:20 10/07/24 17:35 Range/Units Lactic Acid Level 2.0 0.4-2.0 mmol/L Troponin I High Sensitivity 75889 *H </=54 ng/L White Blood Count 12.7 #H 4.4-10.8 10^3/uL Red Blood Count 5.18 4.5-5.90 10^6/uL Hemoglobin 15.0 13.5-17.5 g/dL Hematocrit 45.1 41.0-53.0 % Mean Corpuscular Volume 86.9 80.0-100.0 fL Mean Corpuscular Hemoglobin 28.9 28.0-32.0 pg Mean Corpuscular Hemoglobin Concent 33.3 32.0-36.0 g/dL Red Cell Distribution Width 14.5 H 11.8-14.3 % Platelet Count 243 140-450 10^3/uL Mean Platelet Volume 9.0 6.9-10.8 fL Neutrophils (%) (Auto) 76.8 37.0-80.0 % Lymphocytes (%) (Auto) 15.7 10.0-50.0 % Monocytes (%) (Auto) 6.3 0.0-12.0 % Eosinophils (%) (Auto) 0.6 0.0-7.0 % Basophils (%) (Auto) 0.6 0.0-2.0 % Neutrophils # (Auto) 9.8 H 1.6-8.6 10 ^3/uL Lymphocytes # (Auto) 2.0 0.4-5.4 10 ^3/uL Monocytes # (Auto) 0.8 0-1.3 10 ^3/uL Eosinophils # (Auto) 0.1 0-0.8 10 ^3/uL Basophils # (Auto) 0.1 0-0.2 10 ^3/uL Nucleated Red Blood Cells 0.1 % Prothrombin Time 10.7 9.3-11.8 sec Prothrombin Time INR 1.01 0.9-1.15 Activated Partial Thromboplast Time 27.7 24.5-34.5 SEC Sodium Level 132 L 136-145 mmol/L Potassium Level 4.7 3.5-5.1 mmol/L Chloride Level 99 98-107 mmol/L Carbon Dioxide Level 20 20-31 mmol/L Anion Gap 13 5-15 Blood Urea Nitrogen 18 9-23 mg/dL Creatinine 1.39 H 0.700-1.30 mg/dL Glomerular Filtration Rate Calc 53 >90 mL/min BUN/Creatinine Ratio 12.9 10.0-20.0 Serum Glucose 440 *H 74-106 mg/dL Calcium Level 10.1 8.7-10.4 mg/dL Magnesium Level 1.8 1.6-2.6 mg/dL Total Bilirubin 0.7 0.2-1.0 mg/dL Aspartate Amino Transferase (AST) 137 H 13-40 U/L Alanine Aminotransferase (ALT) 28 7-40 U/L Alkaline Phosphatase 123 H 46-116 U/L B-Type Natriuretic Peptide 1066.46 0-100 pg/mL Total Protein 7.4 5.7-8.2 g/dL Albumin 4.5 3.2-4.8 g/dL Assessment/Plan Assessment/Plan Assessment NSTEMI Uncontrolled diabetes mellitus Acute kidney injury Admit the patient to telemetry to the hospitalist Heparin drip NPO after midnight Continue treatment per orders. Plan discussed with: Patient My Orders Orders - RAMANA GOLDMAN Procedure Category Date Status Time Metoprolol Tartrate PHA 10/07/24 In Process Tablet (Lopressor Ta 22:00 Atorvastatin (Lipitor) PHA 10/07/24 In Process 22:00 Clopidogrel Bisulfate PHA 10/08/24 In Process (Plavix) 10:00 Losartan Tablet PHA 10/08/24 In Process (Cozaar Tablet) 10:00 Basic Metabolic Panel LAB 10/08/24 Logged 04:00 Furosemide Injection PHA 10/08/24 In Process (Lasix Injection) 10:00 Glucose Blood PHA 10/08/24 In Process (Accu-Chek Comfort 00:00 Insulin R (Human) PHA 10/08/24 In Process (Insulin R) 00:00 Dextrose 50% Syringe PHA 10/07/24 In Process 19:45 Admit ADMIT 10/07/24 Transmitted 19:34 Ondansetron Hcl PHA 10/07/24 In Process (Zofran) 19:45 Cardiac DIET 10/08/24 Transmitted Diet-2gna,Lofat,Lochol Breakfast Condition: Fair MELQUIADES 10/07/24 In Process 19:34 Bedrest With Bathroom MELQUIADES 10/07/24 In Process Privileg 19:34 Nitroglycerin PHA 10/07/24 In Process Sublingual (Ntrostat 19:45 Morphine Sulfate PHA 10/07/24 In Process Injection 19:45 Stat Ekg For Chest MELQUIADES 10/07/24 In Process Pain 19:34 Notify Of Changes MELQUIADES 10/07/24 In Process From Base 19:34 Alternative Medicine Practitioner For MELQUIADES 10/07/24 In Process 24 Hours 19:34 Emergency Dysrhythmia MELQUIADES 10/07/24 In Process Protocol 19:34 Rhythm Strips Once MELQUIADES 10/07/24 In Process Every Shift 19:34 Oxygen By Nasal RT 10/07/24 Transmitted Cannula 19:34 Npo After Midnight ORDERS 10/07/24 Transmitted Npo (Nothing By DIET 10/08/24 Transmitted Mouth) Diet Breakfast Date of Service: Oct 07, 2024 Billing Provider: RAMANA GOLDMAN Common Visit Codes: [id number] INP/OBS CARE (HIGH) RAMANA GOLDMAN Oct 08, 2024 00:22
[2024-10-08] MEDS: InsuLIN REG 1unit/0.01ml Soln (100units/ml) SC SCH ×2 (00:37→17:17)
[2024-10-08 02:39] LABS: INR 1.02 (0.9-1.15); Partial Thromboplastin Time 43.7 SEC (24.5-34.5); Prothrombin Time 10.8 sec (9.3-11.8)
[2024-10-08] MEDS: HEPARIN DRIP/D5W 100UNITS/ML 250 ML IV SCH ×3 (03:00→19:45)
[2024-10-08 06:01] LABS: Anion Gap 11 (5-15); Carbon Dioxide 25 mmol/L (20-31); Chloride 100 mmol/L (98-107); Potassium 3.8 mmol/L (3.5-5.1); Sodium 136 mmol/L (136-145)
[2024-10-08 06:07] LABS: BUN/Creatinine Ratio 14.5 (10.0-20.0); Blood Urea Nitrogen 18 mg/dL (9-23); Glucose 212 mg/dL (74-106)
[2024-10-08 07:55] VITALS: PULSE 72; RESP 16; O2SAT 96
[2024-10-08 07:55] LABS: Urine Bacteria FEW /hpf (None Seen); Urine Blood Negative /uL (Negative); Urine Clarity Clear (Clear); Urine Color Light-Yellow (Yellow); Urine Protein, UAD Negative (Negative); Urine Specific Gravity 1.012 (1.001-1.035); Urine Squamous Epithelial Cell FEW /hpf (<5); Urine Urobilinogen Normal (Negative); Urine WBC < 1 /HPF (0-3); Urine pH 5.5 (5.0-9.0)
[2024-10-08 09:39] LABS: Basophils # (auto) 0.1 10 ^3/uL (0-0.2); Basophils % (auto) 0.6 % (0.0-2.0); Eosinophils # (auto) 0.1 10 ^3/uL (0-0.8); Eosinophils % (auto) 0.8 % (0.0-7.0); Hematocrit 44.2 % (41.0-53.0); Hemoglobin 14.6 g/dL (13.5-17.5); Lymphocytes % (auto) 19.1 % (10.0-50.0); Mean Corpuscular Hemoglobin 28.5 pg (28.0-32.0); Mean Corpuscular Hgb Conc. 32.9 g/dL (32.0-36.0); Mean Corpuscular Volume 86.6 fL (80.0-100.0); Monocytes # (auto) 0.9 10 ^3/uL (0-1.3); Monocytes % (auto) 8.2 % (0.0-12.0); Neutrophils # (auto) 7.5 10 ^3/uL (1.6-8.6); Neutrophils % (auto) 71.3 % (37.0-80.0); Nucleated Red Blood Cells % 0.1 %; Platelet Count (auto) 248 10^3/uL (140-450); Red Cell Distribution Width 14.4 % (11.8-14.3); White Blood Cell 10.5 10^3/uL (4.4-10.8)
[2024-10-08] MEDS ORDERED: CLOPIDOGREL BISULFATE 75 MG TAB PO SCH (10:00)
[2024-10-08 10:56] LABS: INR 1.02 (0.9-1.15); Partial Thromboplastin Time 43.3 SEC (24.5-34.5); Prothrombin Time 10.8 sec (9.3-11.8)
[2024-10-08] MEDS: FUROSEMIDE 20 MG/2 ML VIAL IV SCH (10:59)
[2024-10-08] MEDS: LOSARTAN POTASSIUM 50 MG TAB PO SCH (11:00)
--- NOTE | 2024-10-08 12:00 | CONS ---
Pharmacy Clinical Information: INCREASE HEPARIN DRIP RATE TO 1400 UNITS/HR = 14 ML/HR PER APTT OF 43.3 (SUB THERAPEUTIC) NEXT APTT DRAW SCHEDULED FOR 1800 PER RX PROTOCOL. CHRISTOPH CAAL PHARMACIST Oct 08, 2024 12:00
--- NOTE | 2024-10-08 13:27 | DVHPNRES ---
Progress Note Date Seen: Oct 08, 2024 Resident Creating Document: SHIRLENE PRATHER RESIDENT Medical Necessity Reason Pt with a Central, PICC or Fol: No Subjective Review of Systems This is a 74-year-old male with past medical history of hypertension, CAD, CVA, status post CABG, dyslipidemia presented to the ED with a complaint of chief complaint chest pain for 2 days prior to this admission. according to the patient the chest pain started since Sunday after lunch which was substernal sharp pain with heaviness in the chest he took nitroglycerin but did not relieve the pain and getting worse that prompted this visit. patient also mentioned he was scheduled for elective left heart catheterization on with Dr. Ng. EKG revealed T inversion in inferior lead, sinus rhythm [place] [address]. Patient was seen and examined on the bedside. He is alert oriented x3. Mentioned chest pain resolved and feeling better. No other active complaint. Constitutional: No: Fever, Chills, Sweats, Weakness, Malaise, Other Eyes: No: Pain, Vision change, Conjunctivae inflammation, Eyelid inflammation, Other, Redness ENT: No: Ear pain, Ear discharge, Nose pain, Nose discharge, Nose congestion, Mouth pain, Mouth swelling, Throat pain, Throat swelling, Other Respiratory: Shortness of breath, improving No: Cough, Dry,Wheezing, Hemoptysis, Pleuritic Pain, Sputum, Wheezing, Other Cardiovascular: Chest Pain, No Palpitations, Orthopnea, Paroxysmal Noc. Dyspnea, Edema, Lt Headedness, Other Gastrointestinal: No: Nausea, Vomiting, Abdominal Pain, Diarrhea, Constipation, Melena, Hematochezia, Other Musculoskeletal: No: other, neck pain, shoulder pain, arm pain, back pain, hand pain, leg pain, foot pain Neurological:; No: Weakness, Numbness, Incoordination, Change in speech, Confusion, Seizures Objective vital signs Vital Sign Date Time Temp Pulse Resp B/P (MAP) Pulse Ox O2 Delivery O2 Flow Rate FiO2 10/08/24 12:39 71 129/76 10/08/24 12:06 98.5 16 96 98.5 10/08/24 07:55 Nasal Cannula* 2 28 Total Intake and Output 10/07/24 10/07/24 10/08/24 15:00 23:00 07:00 Intake Total 80 ml 60 ml Balance 80 ml 60 ml medications Current Medications Medications Dose Ordered Sig/Viral Route Start Time Stop Time Status Last Admin Dose Admin Sodium Chloride 10 ml Q8HR IV 10/07/24 22:00 10/08/24 06:10 10 ML Metoprolol Tartrate 25 mg BID PO 10/07/24 22:00 10/08/24 11:00 25 MG Atorvastatin Calcium 40 mg HS PO 10/07/24 22:00 10/07/24 22:16 40 MG Losartan Potassium 50 mg DAILY PO 10/08/24 10:00 10/08/24 11:00 50 MG Furosemide 20 mg DAILY IV 10/08/24 10:00 10/08/24 10:59 20 MG Diagnostic Test (Pha) 1 strip Q6HR 10/08/24 00:00 10/08/24 12:44 1 STRIP Insulin Human Regular Q6HR SC 10/08/24 00:00 10/08/24 12:45 4 UNITS Dextrose 50 ml UD PRN IV 10/07/24 19:45 Ondansetron HCl 4 mg Q4HP PRN IV 10/07/24 19:45 Nitroglycerin 0.4 mg Q5MINP PRN SL 10/07/24 19:45 Morphine Sulfate 2 mg Q30M PRN IV 10/07/24 19:45 Ceftriaxone Sodium 50 ml @ 100 mls/hr DAILY@09 IV 10/07/24 20:52 10/08/24 09:26 100 MLS/HR Heparin Sodium/ Dextrose 250 ml @ 14 mls/hr [id number] IV 10/08/24 12:00 Examination Physical examination: General Appearance: Alert, Oriented X3, Cooperative, No acute distress HEENT: Atraumatic, PERRLA, EOMI, Mucous membrane moist/pink Respiratory: Clear to auscultation, Normal air movement Cardiovascular: Regular rate, Normal S1, Normal S2, No murmurs, no chest wall tenderness Abdominal: Normal bowel sounds, Soft, No tenderness, No hepatospenomegaly, No masses Extremities: No clubbing, No cyanosis, No edema, Normal pulses, No tenderness/swelling Skin: No rashes, No breakdown, No significant lesion Neuro: Normal gait, Normal speech, Strength at 5/5 X4 ext, Normal tone, Sensation intact, grossly intact cranial nerves. Psych/Mental Status: Mental status NL, Mood NL laboratory and microbiology Laboratory Tests 10/08/24 05:15 Test 10/08/24 05:15 Range/Units Serum Glucose 212 #H 74-106 mg/dL Labs and/or images reviewed: Labs reviewed by me, Image(s) reviewed by me Problem List/Assessment/Plan Problem List/Assessment/Plan Assessment and plan: # NSTEMI # Possible acute on chronic systolic heart failure with mildly reduced ejection fraction ( EF 45 to 50%) # Severe aortic stenosis # CAD, s/p PTCA X1 and CABG # Hypertensive heart disease # Dyslipidemia - EKG revealed T inversion in inferior leads, normal sinus rhythm and RBBB - Trop[place] trends are 96536> 56270> 75043 - CxR showed Low lung volumes with mild bibasilar subsegmental atelectasis. No pulmonary edema. - BNP is elevated - ECHO on 08/19 demonstrated EF 45-50%, [id number]-kv-btvehy valvular aortic stenosis aortic valve area 1.0 cm2 with maximum pressure gradient 32 mm Hg and mean pressure gradient 19 mm Hg. - patient was given aspirin 325 mg p.o. once - IV heparin drip as per protocol - Losartan 50 mg daily, metoprolol tartrate 25 mg b.i.d. - IV Lasix 20 mg daily. - Atorvastatin 40 mg at HS - Cardiology on board and patient is scheduled for left heart catheterization tomorrow on 10/09/2024 # Uncontrolled type 2 diabetes mellitus, HbA1C> 14.0% - Lantus 15 units at q.p.m. and mild sliding scale of insulin. # DVT prophylaxis - Patient is on heparin Goal of care discussed with the patient for more than 20 minutes full code Plan discussed with Dr. Anderson Plan discussed with: Patient, Other My Orders My Orders Orders - SHIRLENE PRATHER RESIDENT Procedure Category Date Status Time Glucose Blood PHA 10/08/24 Transmitted (Accu-Chek Comfort 17:00 Bedtime Insulin Scale PHA 10/08/24 Transmitted 22:00 Moderate Insulin Ss PHA 10/08/24 Transmitted 17:00 Dextrose 50% Syringe PHA 10/08/24 Transmitted 13:30 Date of Service: Oct 08, 2024 Billing Provider: RICHIE ANDERSON MD Common Visit Codes: [id number] INP/OBS CARE(HIGH) SHIRLENE PRATHER RESIDENT Oct 08, 2024 13:27 RICHIE ANDERSON MD Oct 09, 2024 18:51
[2024-10-08] MEDS ORDERED: DEXTROSE (50%) 50ML SYRG IV PRN (13:30)
[2024-10-08 14:22] LABS: INR 1.03 (0.9-1.15); Partial Thromboplastin Time 53.2 SEC (24.5-34.5); Prothrombin Time 10.9 sec (9.3-11.8)
[2024-10-08 16:36] VITALS: BP 122/72; PULSE 68; RESP 17; TEMP 98; O2SAT 97
[2024-10-08] MEDS ORDERED: InsuLIN REG 1unit/0.01ml Soln (100units/ml) SC SCH ×2 (17:00→22:00)
[2024-10-08 18:38] LABS: INR 1.03 (0.9-1.15); Partial Thromboplastin Time 47.9 SEC (24.5-34.5); Prothrombin Time 10.9 sec (9.3-11.8)
[2024-10-08] MEDS ORDERED: HEPARIN DRIP/D5W 100UNITS/ML 250 ML IV SCH (19:45)
[2024-10-08 20:00] VITALS: PULSE 76; PULSE 80; RESP 18; O2SAT 96
[2024-10-08 21:00] VITALS: BP 108/52; PULSE 80; RESP 18; TEMP 97.7; O2SAT 96
--- NOTE | 2024-10-08 21:18 | CONS ---
Pharmacy Clinical Information: NEW RATE HEP DRIP 14 ML/HR OR 1400 UNITS/HR SINCE APTT = 47.9 @1801 NEXT APTT NELDA 10/09 @0200 PER RX PROTOCOL MARIBEL SPARKS REPEAT ORDER BACK AND AWARE 14ML/HR (INCREASED 200 UNITS FROM 12 ML/HR) JUAN C GRECO PHARMACIST Oct 08, 2024 21:18
[2024-10-08] MEDS: INSULIN LANTUS (GLARGINE) 1 /0.01ml (100units/ml) SC SCH (21:42)
[2024-10-08] MEDS: MELATONIN 5 MG TAB PO ONE (21:48)
[2024-10-09] VITALS (17 sets, daily range): BP systolic 85–151; BP diastolic 47–76; PULSE 60–84; RESP 12–18; TEMP 97.7–98; O2SAT 92–99
[2024-10-09 03:49] LABS: Basophils # (auto) 0.2 10 ^3/uL (0-0.2); Basophils % (auto) 1.5 % (0.0-2.0); Eosinophils # (auto) 0.3 10 ^3/uL (0-0.8); Eosinophils % (auto) 2.4 % (0.0-7.0); Hematocrit 45.3 % (41.0-53.0); Hemoglobin 15.1 g/dL (13.5-17.5); Lymphocytes # (auto) 2.9 10 ^3/uL (0.4-5.4); Lymphocytes % (auto) 24.3 % (10.0-50.0); Mean Corpuscular Hgb Conc. 33.4 g/dL (32.0-36.0); Mean Corpuscular Volume 86.6 fL (80.0-100.0); Monocytes # (auto) 1.1 10 ^3/uL (0-1.3); Monocytes % (auto) 9.2 % (0.0-12.0); Neutrophils # (auto) 7.5 10 ^3/uL (1.6-8.6); Neutrophils % (auto) 62.6 % (37.0-80.0); Platelet Count (auto) 251 10^3/uL (140-450); Red Blood Cells 5.23 10^6/uL (4.5-5.90); Red Cell Distribution Width 14.5 % (11.8-14.3)
[2024-10-09 04:06] LABS: INR 1.03 (0.9-1.15); Partial Thromboplastin Time 55.5 SEC (24.5-34.5); Prothrombin Time 10.9 sec (9.3-11.8)
--- NOTE | 2024-10-09 08:09 | DVHPN2 ---
Progress Note - Dictate Date Seen: Oct 08, 2024 Medical Necessity Reason Pt with a Central, PICC or Fol: No Subjective PT WITH NSTEMI PPI ISCHEMIC CM HFrEF ACUTE/ CHRONIC CRITICAL EF 45% CAD S/P CABG X 3 HX OF PTCA STENT PRIOR TO CABG TIA S/P ICA STENTING DIABETES vital signs Vital Sign Date Time Temp Pulse Resp B/P (MAP) Pulse Ox O2 Delivery O2 Flow Rate FiO2 10/09/24 05:00 98.0 64 17 112/61 (78) 96 98.0 10/08/24 20:00 Nasal Cannula* 2 28 Total Intake and Output 10/08/24 10/08/24 10/09/24 15:00 23:00 07:00 Intake Total 250 ml 400 ml Output Total 400 ml Balance 250 ml 0 ml medications Current Medications Medications Dose Ordered Sig/Viral Route Start Time Stop Time Status Last Admin Dose Admin Sodium Chloride 10 ml Q8HR IV 10/07/24 22:00 10/09/24 06:19 10 ML Metoprolol Tartrate 25 mg BID PO 10/07/24 22:00 10/08/24 11:00 25 MG Atorvastatin Calcium 40 mg HS PO 10/07/24 22:00 10/08/24 21:47 40 MG Losartan Potassium 50 mg DAILY PO 10/08/24 10:00 10/08/24 11:00 50 MG Furosemide 20 mg DAILY IV 10/08/24 10:00 10/08/24 10:59 20 MG Ondansetron HCl 4 mg Q4HP PRN IV 10/07/24 19:45 Nitroglycerin 0.4 mg Q5MINP PRN SL 10/07/24 19:45 Morphine Sulfate 2 mg Q30M PRN IV 10/07/24 19:45 Diagnostic Test (Pha) 1 strip ACHS 10/08/24 17:00 10/09/24 06:19 1 STRIP Dextrose 50 ml UD PRN IV 10/08/24 13:30 Insulin Glargine 15 units HS SC 10/08/24 22:00 10/08/24 21:42 15 UNITS Insulin Human Regular ACHS SC 10/08/24 17:00 10/09/24 05:44 6 UNITS Heparin Sodium/ Dextrose 250 ml @ 14 mls/hr [id number] IV 10/08/24 19:45 10/08/24 19:45 14 MLS/HR laboratory and microbiology Laboratory Tests 10/09/24 03:33 10/08/24 05:15 Test 10/08/24 05:15 Range/Units Serum Glucose 212 #H 74-106 mg/dL Problem List NSTEMI PPI ISCHEMIC CM HFrEF ACUTE/ CHRONIC CRITICAL EF 45% CAD TIA S/P ICA STENTING DIABETES Assessment/Plan PT SCHEDULED TO UNDERGO L/RHC PRESENTED WITH CHEST PAIN ELEVATED TROPONIN NOW TO PROCEED WITH L/RHC Plan discussed with: Patient, Spouse Critical Care Time(min): 35 JIGNA NGO MD Oct 09, 2024 08:09
--- NOTE | 2024-10-09 10:02 | DVHPNRES ---
Progress Note Date Seen: Oct 09, 2024 Resident Creating Document: SHIRLENE PRATHER RESIDENT Medical Necessity Reason Pt with a Central, PICC or Fol: No Objective vital signs Vital Sign Date Time Temp Pulse Resp B/P (MAP) Pulse Ox O2 Delivery O2 Flow Rate FiO2 10/09/24 09:42 112/61 10/09/24 09:22 64 10/09/24 05:00 98.0 17 96 98.0 10/08/24 20:00 Nasal Cannula* 2 28 Total Intake and Output 10/08/24 10/08/24 10/09/24 15:00 23:00 07:00 Intake Total 250 ml 400 ml Output Total 400 ml Balance 250 ml 0 ml medications Current Medications Medications Dose Ordered Sig/Viral Route Start Time Stop Time Status Last Admin Dose Admin Sodium Chloride 10 ml Q8HR IV 10/07/24 22:00 10/09/24 06:19 10 ML Metoprolol Tartrate 25 mg BID PO 10/07/24 22:00 10/09/24 09:22 25 MG Atorvastatin Calcium 40 mg HS PO 10/07/24 22:00 10/08/24 21:47 40 MG Losartan Potassium 50 mg DAILY PO 10/08/24 10:00 10/09/24 09:22 50 MG Furosemide 20 mg DAILY IV 10/08/24 10:00 10/08/24 10:59 20 MG Ondansetron HCl 4 mg Q4HP PRN IV 10/07/24 19:45 Nitroglycerin 0.4 mg Q5MINP PRN SL 10/07/24 19:45 Morphine Sulfate 2 mg Q30M PRN IV 10/07/24 19:45 Diagnostic Test (Pha) 1 strip ACHS 10/08/24 17:00 10/09/24 06:19 1 STRIP Dextrose 50 ml UD PRN IV 10/08/24 13:30 Insulin Glargine 15 units HS SC 10/08/24 22:00 10/08/24 21:42 15 UNITS Insulin Human Regular ACHS SC 10/08/24 17:00 10/09/24 05:44 6 UNITS Heparin Sodium/ Dextrose 250 ml @ 14 mls/hr [id number] IV 10/08/24 19:45 10/08/24 19:45 14 MLS/HR laboratory and microbiology Laboratory Tests 10/09/24 03:33 10/08/24 05:15 Test 10/08/24 05:15 Range/Units Serum Glucose 212 #H 74-106 mg/dL Problem List/Assessment/Plan Problem List/Assessment/Plan Assessment and plan: # NSTEMI # Possible acute on chronic systolic heart failure with mildly reduced ejection fraction ( EF 45 to 50%) # Severe aortic stenosis # CAD, s/p PTCA X1 and CABG # Hypertensive heart disease # Dyslipidemia - EKG revealed T inversion in inferior leads, normal sinus rhythm and RBBB - [place] 26142> 36715> 31199 - CxR showed Low lung volumes with mild bibasilar subsegmental atelectasis. No pulmonary edema. - BNP is elevated - ECHO on 08/19 demonstrated EF 45-50%, [id number] valvular aortic stenosis aortic valve area 1.0 cm2 with maximum pressure gradient 32 mm Hg and mean pressure gradient 19 mm Hg. - patient was given aspirin 325 mg p.o. once - IV heparin drip as per protocol - Losartan 50 mg daily, metoprolol tartrate 25 mg b.i.d. - IV Lasix 20 mg daily. - Atorvastatin 40 mg at HS - Cardiology on board and patient is scheduled for left heart catheterization tomorrow on 10/09/2024 # Uncontrolled type 2 diabetes mellitus, HbA1C> 14.0% - Lantus 15 units at q.p.m. and mild sliding scale of insulin. # DVT prophylaxis - Patient is on heparin Goal of care discussed with the patient for more than 20 minutes full code Plan discussed with Dr. Anderson My Orders My Orders Orders - SHIRLENE PRATHER Procedure Category Date Status Time Glucose Blood PHA 10/08/24 In Process (Accu-Chek Comfort 17:00 Dextrose 50% Syringe PHA 10/08/24 In Process 13:30 Insulin Lantus PHA 10/08/24 In Process (Glargine) (Lantus) 22:00 Insulin R (Human) PHA 10/08/24 In Process (Insulin R) 17:00 Electrocardigram EKG 10/08/24 Logged 15:31 SHIRLENE PRATHER Oct 09, 2024 10:02
--- NOTE | 2024-10-09 10:13 | ECG ---
[facility] Test Date: 2024-10-07 Test Time: 17:27:09 Pat Name: NETTE BURNETT Department: ER Room: 0219T Gender: M Data Designer: GP : [id number] Requested By: SHIRLENE PRATHER Order Number: [id number] Reading MD: Josue Vega Measurements Intervals Sherman Rate: 104 P: 0 NM: 140 QRS: 254 QRSD: 172 T: 116 QT: 396 QTc: 521 Interpretive Statements A-V dual-paced rhythm with some inhibition No further analysis attempted due to paced rhythm Baseline wander in lead(s) I,II,aVR,aVF,V1,V2,V3,V5,V6 Electronically Signed On 10-10-2024 13:41:45 PDT by Josue Vega Please click the below link to view image of tracing.
[2024-10-09] MEDS: LIDOCAINE 2%HCL (LOCAL ANESTH.) INJ 20ML MDV ONE (10:40)
[2024-10-09] MEDS: MIDAZOLAM HCL 2MG/2ML 2ml VIAL (1mg/ml) ONE (10:40)
[2024-10-09] MEDS: fentaNYL CITRATE 100 MCG/2 ML VL ONE (10:40)
[2024-10-09] MEDS: ANGIOMAX 250 MG VIAL IV ONE (10:41)
[2024-10-09] MEDS: HEPARIN IN NS 1000Units/500mL 1,500 ML ONE (10:41)
[2024-10-09] MEDS: SODIUM CHL 0.9% 50 ML ONE (10:45)
[2024-10-09] MEDS: FLUMAZENIL 0.1 MG/ML INJ 10ML MDV IV ONE ×2 (12:00→13:21)
[2024-10-09] MEDS: ONDANSETRON HCL 4 MG/2 ML VIAL ONE (12:21)
--- NOTE | 2024-10-09 12:39 | DVHPN2 ---
Progress Note - Dictate Medical Necessity Reason Pt with a Central, PICC or Fol: No Subjective PT WITH NSTEMI PPI ISCHEMIC CM HFrEF ACUTE/ CHRONIC CRITICAL EF 45% CAD CABG X3 COHEN TO AD SVG TO OM SVG TO DIAG TIA S/P ICA STENTING DIABETES vital signs Vital Sign Date Time Temp Pulse Resp B/P (MAP) Pulse Ox O2 Delivery O2 Flow Rate FiO2 10/09/24 09:42 112/61 10/09/24 09:22 64 10/09/24 09:00 97.9 18 96 97.9 10/09/24 08:05 Nasal Cannula* 2 28 Total Intake and Output 10/08/24 10/08/24 10/09/24 15:00 23:00 07:00 Intake Total 250 ml 400 ml Output Total 400 ml Balance 250 ml 0 ml medications Current Medications Medications Dose Ordered Sig/Viral Route Start Time Stop Time Status Last Admin Dose Admin Sodium Chloride 10 ml Q8HR IV 10/07/24 22:00 10/09/24 06:19 10 ML Metoprolol Tartrate 25 mg BID PO 10/07/24 22:00 10/09/24 09:22 25 MG Atorvastatin Calcium 40 mg HS PO 10/07/24 22:00 10/08/24 21:47 40 MG Losartan Potassium 50 mg DAILY PO 10/08/24 10:00 10/09/24 09:22 50 MG Furosemide 20 mg DAILY IV 10/08/24 10:00 10/08/24 10:59 20 MG Ondansetron HCl 4 mg Q4HP PRN IV 10/07/24 19:45 Nitroglycerin 0.4 mg Q5MINP PRN SL 10/07/24 19:45 Morphine Sulfate 2 mg Q30M PRN IV 10/07/24 19:45 Diagnostic Test (Pha) 1 strip ACHS 10/08/24 17:00 10/09/24 06:19 1 STRIP Dextrose 50 ml UD PRN IV 10/08/24 13:30 Insulin Glargine 15 units HS SC 10/08/24 22:00 10/08/24 21:42 15 UNITS Insulin Human Regular ACHS SC 10/08/24 17:00 10/09/24 05:44 6 UNITS Heparin Sodium/ Dextrose 250 ml @ 14 mls/hr [id number] IV 10/08/24 19:45 10/08/24 19:45 14 MLS/HR laboratory and microbiology Laboratory Tests 10/09/24 03:33 10/08/24 05:15 Test 10/08/24 05:15 Range/Units Serum Glucose 212 #H 74-106 mg/dL Problem List NSTEMI PPI ISCHEMIC CM HFrEF ACUTE/ CHRONIC CRITICAL EF 45% CAD S/P CABG HX OF PTCA STENT PRIOR TO CABG TIA S/P ICA STENTING DIABETES Assessment/Plan PT SCHEDULED TO UNDERGO L/RHC PRESENTED WITH CHEST PAIN ELEVATED TROPONIN NOW TO PROCEED WITH L/RHC S/P PTCA STENT SVG TO OM S/P PTCA STENT RCA Plan discussed with: Patient Critical Care Time(min): 35 JIGNA NGO MD Oct 09, 2024 12:39
[2024-10-09] MEDS: DOPamine 1600MCG/ML D5W 250 ML IV ONE (13:14)
[2024-10-09] MEDS: HYDROmorphone HCL 2 MG/ML VL/or syr ONE (13:20)
[2024-10-09] MEDS: ONDANSETRON HCL 4 MG/2 ML VIAL IV PRN (14:07)
[2024-10-09] MEDS: FUROSEMIDE 40 MG/4 ML VIAL IV ONE (14:30)
[2024-10-09] MEDS: FUROSEMIDE 40 MG/4 ML VIAL ONE (14:48)
--- NOTE | 2024-10-09 15:58 | DVHPNRES ---
Progress Note Date Seen: Oct 09, 2024 Resident Creating Document: SHIRLENE PRATHER RESIDENT Medical Necessity Reason Pt with a Central, PICC or Fol: No Subjective Review of Systems The patient was seen and examined on the bedside. He is alert oriented x3. The patient went to research lab assistant for possible left/right heart catheterization. Objective vital signs Vital Sign Date Time Temp Pulse Resp B/P (MAP) Pulse Ox O2 Delivery O2 Flow Rate FiO2 10/09/24 14:30 126/66 10/09/24 09:22 64 10/09/24 09:00 97.9 18 96 97.9 10/09/24 08:05 Nasal Cannula* 2 28 Total Intake and Output 10/08/24 10/08/24 10/09/24 15:00 23:00 07:00 Intake Total 250 ml 400 ml Output Total 400 ml Balance 250 ml 0 ml medications Current Medications Medications Dose Ordered Sig/Viral Route Start Time Stop Time Status Last Admin Dose Admin Sodium Chloride 10 ml Q8HR IV 10/07/24 22:00 10/09/24 06:19 10 ML Metoprolol Tartrate 25 mg BID PO 10/07/24 22:00 10/09/24 09:22 25 MG Atorvastatin Calcium 40 mg HS PO 10/07/24 22:00 10/08/24 21:47 40 MG Losartan Potassium 50 mg DAILY PO 10/08/24 10:00 10/09/24 09:22 50 MG Furosemide 20 mg DAILY IV 10/08/24 10:00 10/08/24 10:59 20 MG Ondansetron HCl 4 mg Q4HP PRN IV 10/07/24 19:45 10/09/24 14:07 4 MG Nitroglycerin 0.4 mg Q5MINP PRN SL 10/07/24 19:45 Morphine Sulfate 2 mg Q30M PRN IV 10/07/24 19:45 Diagnostic Test (Pha) 1 strip ACHS 10/08/24 17:00 10/09/24 06:19 1 STRIP Dextrose 50 ml UD PRN IV 10/08/24 13:30 Insulin Glargine 15 units HS SC 10/08/24 22:00 10/08/24 21:42 15 UNITS Insulin Human Regular ACHS SC 10/08/24 17:00 10/09/24 05:44 6 UNITS Heparin Sodium/ Dextrose 250 ml @ 14 mls/hr [id number] IV 10/08/24 19:45 10/08/24 19:45 14 MLS/HR Examination Physical examination: General Appearance: Alert, Oriented X3, Cooperative, No acute distress HEENT: Atraumatic, PERRLA, EOMI, Mucous membrane moist/pink Respiratory: Clear to auscultation, Normal air movement Cardiovascular: Regular rate, Normal S1, Normal S2, No murmurs, no chest wall tenderness Abdominal: Normal bowel sounds, Soft, No tenderness, No hepatospenomegaly, No masses Extremities: No clubbing, No cyanosis, No edema, Normal pulses, No tenderness/swelling Skin: No rashes, No breakdown, No significant lesion Neuro: Normal gait, Normal speech, Strength at 5/5 X4 ext, Normal tone, Sensation intact, Cranial nerves 3-12 NL, Reflexes 2+ Psych/Mental Status: Mental status NL, Mood NL laboratory and microbiology Laboratory Tests 10/09/24 03:33 10/08/24 05:15 Test 10/08/24 05:15 Range/Units Serum Glucose 212 #H 74-106 mg/dL Labs and/or images reviewed: Labs reviewed by me, Image(s) reviewed by me Problem List/Assessment/Plan Problem List/Assessment/Plan Assessment and plan: # NSTEMI # Possible acute on chronic systolic heart failure with mildly reduced ejection fraction ( EF 45 to 50%) # Severe aortic stenosis # CAD, s/p PTCA X1 and CABG # Hypertensive heart disease # Dyslipidemia - EKG revealed T inversion in inferior leads, normal sinus rhythm and RBBB [place] 37263> 43050> 87578 - CxR showed Low lung volumes with mild bibasilar subsegmental atelectasis. No pulmonary edema. - BNP is elevated - ECHO on 08/19 demonstrated EF 45-50%, ssswauuq-mk-vivtce valvular aortic stenosis aortic valve area 1.0 cm2 with maximum pressure gradient 32 mm Hg and mean pressure gradient 19 mm Hg. - patient was given aspirin 325 mg p.o. once - IV heparin drip as per protocol - Losartan 50 mg daily, metoprolol tartrate 25 mg b.i.d. - IV Lasix 20 mg daily. - Atorvastatin 40 mg at - Cardiology on board and patient went to research lab assistant for L/RHC # Uncontrolled type 2 diabetes mellitus, HbA1C> 14.0% - Lantus 15 units at q.p.m. and mild sliding scale of insulin. # DVT prophylaxis - Patient is on heparin Goal of care discussed with the patient for more than 20 minutes full code Plan discussed with Dr. Anderson Plan discussed with: Patient, Other Date of Service: Oct 09, 2024 Billing Provider: RICHIE ANDERSON MD Common Visit Codes: [id number] INP/OBS CARE(HIGH) SHIRLENE PRATHER RESIDENT Oct 09, 2024 15:58 RICHIE ANDERSON MD Oct 09, 2024 19:30
[2024-10-09 17:49] LABS: INR 1.07 (0.9-1.15); Prothrombin Time 11.3 sec (9.3-11.8)
--- NOTE | 2024-10-09 21:32 | DVHOP ---
DATE OF SURGERY: 10/09/2024 INDICATIONS: The patient with non-ST elevation OK. He also has permanent pacemaker, so it is difficult to determine whether the patient has ST elevation or not. Furthermore, the patient has elevated troponins and chest pain. The patient was put on heparin. There was a great washout after heparin therapy was initiated, consistent with reperfusion. At this time, the patient is to undergo coronary angiography to define coronary anatomy with possibility of angioplasty. The patient also has critical aortic valve stenosis and the patient was actually scheduled to undergo left and right heart catheterization today, but the patient presented with subendocardial OK and therefore was admitted over 48 hours earlier. He is now to undergo left and right heart catheterization. PROCEDURES PERFORMED: * Left and right heart cath. * Angiography of the saphenous vein graft x 2. * Subclavian and left internal mammary angiography. * Conscious sedation. * Angioplasty with stent placement in the saphenous vein graft to the OM with thrombectomy as well as stent placement. * Angiography with stent placement of the right coronary artery with thrombectomy with shockwave as well as FFR of the RCA, which was 0.77. DESCRIPTION OF PROCEDURE: The patient was prepped and draped in sterile condition. Xylocaine 1% used to anesthetize the right groin. Using a Cook needle, right femoral artery was engaged, Seldinger technique, a 6-Pu[place]ican sheath in the right femoral artery. Similarly, a 6-[place] sheath was introduced in the right femoral vein. Using a 6-[place] JL4 catheter and 6-[place] JR4 catheter, selective left and right coronary angiographies were performed. Using a 6-[place] JR4 catheter, angiography to saphenous vein graft and COHEN was performed as well. Then, the diagnostic angiography was exchanged for an interventional system. Using an LCB guide catheter, the saphenous vein graft to the OM was cannulated. ChoICE PT extra support wire was then introduced into the saphenous vein graft. It was then balloon angioplastied with a 2.5 x 20 mm Euphora balloon. During this procedure, the patient became hypotensive, bradycardic, and had to be started on dopamine to keep the blood pressure up. The patient became hypotensive and bradycardic, but pacing kept him in appropriate rhythm. Following once the angioplasty was done, the patient had reperfusion established from ANDI grade 1 flow to ANDI grade 3 flow. The patient's hemodynamic status improved immediately. The patient was also given Narcan and flumazenil to reverse sedation. Following the balloon angioplasty, a 3.0 x 12 mm shockwave thrombectomy catheter was used at the ostium because of heavy calcification. Then, a 3.5 x 22 mm Jose R stent was then deployed across the lesion at 20 atmospheres. There were no complications at this point. The procedure went smoothly. Once this was done, then the patient had COHEN. The guide catheter was inserted in the right coronary artery. ChoICE PT extra support wire was used to cross the lesion. It was then balloon angioplastied with a 2.5-mm Euphora balloon. A shockwave was used, 3.0 x 12 mm shockwave because of heavy calcification. Once again, a thrombectomy catheter was used. Following that, a 3.5 x 22 mm Jose R stent was deployed across the proximal RCA. There were no complications. The patient tolerated the procedure well. FFR was performed. The RCA was 0.77 consistent with hemodynamically significant narrowing. Left ventriculogram showed the patient to have global hypokinesis and estimated EF around 35%. Down from 50% by echo from 2 weeks ago. At this point, the patient will be restudied in approximately 2 weeks to see how his ejection fraction is. We elected not to proceed with [place]-Laura catheterization because of hemodynamic status. We will wait until the patient fully recovers for us to do the right heart catheterization to calculate aortic valve status. We may even use a noninvasive protocol to assess the severity rather than doing an invasive protocol at this point. CONCLUSION: * Left main patent. * Left anterior descending artery was occluded. * COHEN to the LAD was patent. * Saphenous vein graft to the diagonal was occluded. * Obtuse marginal 1 was occluded. * Saphenous vein graft to the OM had a 99% subtotal narrowing, status post angioplasty with stent placement with a 3.5 x 22 mm Jose R stent with thrombectomy catheter used with less than 10% residual stenosis, now with ANDI grade 3 flow. * Te-Moak circumflex had severe diffuse disease throughout. * Right coronary artery, which was not bypassed, had a 95% proximal narrowing. * Status post angioplasty with stent placement of the RCA with a 3.5 x 22 mm Jose R stent with less than 10% residual stenosis. Thrombectomy and FFR was performed on the RCA. At this time, the patient is clinically stable. We will slightly titrate off on the dopamine. We will continue to follow the patient. Hernandez Cochran MD SA/MIRIAM/LUCIAN TID: [id number] RECEIPT: [id number]
[2024-10-10] VITALS (9 sets, daily range): BP systolic 81–150; BP diastolic 51–80; PULSE 59–79; RESP 16–21; TEMP 97.6–98.4; O2SAT 90–96
[2024-10-10 06:54] LABS: Anion Gap 9 (5-15); Carbon Dioxide 28 mmol/L (20-31); Chloride 99 mmol/L (98-107); Potassium 3.7 mmol/L (3.5-5.1); Sodium 136 mmol/L (136-145)
[2024-10-10 06:55] LABS: Calcium 9.8 mg/dL (8.7-10.4)
[2024-10-10 07:00] LABS: BUN/Creatinine Ratio 22.2 (10.0-20.0)
[2024-10-10 07:02] LABS: Blood Urea Nitrogen 26 mg/dL (9-23); Glucose 151 mg/dL (74-106)
[2024-10-10] MEDS ORDERED: ASPI81CH59 PO (11:25)
[2024-10-10] MEDS: SODIUM CHLORIDE 0.9% 250 ML IV ONE (11:27)
[2024-10-10] MEDS: CLOPIDOGREL BISULFATE 75 MG TAB PO SCH (11:36)
[2024-10-10] MEDS: ASPirin 81 mg TAB PO SCH (11:36)
--- NOTE | 2024-10-10 14:32 | DVHPN2 ---
Progress Note - Dictate Date Seen: Oct 10, 2024 Medical Necessity Reason Pt with a Central, PICC or Fol: No Subjective PT WITH NSTEMI PPI ISCHEMIC CM HFrEF ACUTE/ CHRONIC CRITICAL EF 45% CAD S/P CABG X 3 HX OF PTCA STENT PRIOR TO CABG TIA S/P ICA STENTING DIABETES vital signs Vital Sign Date Time Temp Pulse Resp B/P (MAP) Pulse Ox O2 Delivery O2 Flow Rate FiO2 10/10/24 13:24 69 16 113/64 (80) 93 10/10/24 09:00 97.8 97.8 10/10/24 08:10 Nasal Cannula* 4 36 Total Intake and Output 10/09/24 10/09/24 10/10/24 15:00 23:00 07:00 Intake Total 450 ml 100 ml Output Total 300 ml Balance 450 ml -200 ml medications Current Medications Medications Dose Ordered Sig/Viral Route Start Time Stop Time Status Last Admin Dose Admin Sodium Chloride 10 ml Q8HR IV 10/07/24 22:00 10/10/24 14:28 10 ML Metoprolol Tartrate 25 mg BID PO 10/07/24 22:00 10/09/24 22:59 25 MG Atorvastatin Calcium 40 mg HS PO 10/07/24 22:00 10/09/24 22:55 40 MG Losartan Potassium 50 mg DAILY PO 10/08/24 10:00 10/09/24 09:22 50 MG Furosemide 20 mg DAILY IV 10/08/24 10:00 10/08/24 10:59 20 MG Ondansetron HCl 4 mg Q4HP PRN IV 10/07/24 19:45 10/09/24 19:55 4 MG Nitroglycerin 0.4 mg Q5MINP PRN SL 10/07/24 19:45 Morphine Sulfate 2 mg Q30M PRN IV 10/07/24 19:45 Diagnostic Test (Pha) 1 strip ACHS 10/08/24 17:00 10/10/24 11:41 1 STRIP Dextrose 50 ml UD PRN IV 10/08/24 13:30 Insulin Glargine 15 units HS SC 10/08/24 22:00 10/09/24 22:00 15 UNITS Insulin Human Regular ACHS SC 10/08/24 17:00 10/10/24 11:40 4 UNITS Aspirin 81 mg DAILY PO 10/10/24 10:00 10/10/24 11:36 81 MG Clopidogrel Bisulfate 75 mg DAILY PO 10/10/24 10:00 10/10/24 11:36 75 MG laboratory and microbiology Laboratory Tests 10/10/24 05:47 10/09/24 03:33 Test 10/10/24 05:47 Range/Units Serum Glucose 151 H 74-106 mg/dL Problem List NSTEMI PPI ISCHEMIC CM HFrEF ACUTE/ CHRONIC CRITICAL EF 45% CAD S/P CABG HX OF PTCA STENT PRIOR TO CABG TIA S/P ICA STENTING DIABETES Assessment/Plan PT SCHEDULED TO UNDERGO L/RHC PRESENTED WITH CHEST PAIN ELEVATED TROPONIN NOW TO PROCEED WITH L/RHC S/P PTCA STENT SVG TO OM S/P PTCA STENT RCA MAY DC HOME AFTER PT AMBULATES Plan discussed with: Patient Critical Care Time(min): 35 JIGNA NGO MD Oct 10, 2024 14:32
[2024-10-10] MEDS ORDERED: FURO1TAB33 PO (14:51)
[2024-10-10] MEDS ORDERED: POTA-36 PO (14:51)
--- NOTE | 2024-10-10 16:51 | DVHDSRES ---
Discharge Summary Date of Admission Resident Creating Document: SHIRLENE PRATHER RESIDENT Oct 07, 2024 at 19:34 Date of Discharge: Oct 10, 2024 Admitting Diagnosis NSTEMI Wounds: No wound was present Labs/Diagnostic Data: Laboratory Results Test 10/10/24 11:29 10/10/24 05:47 10/09/24 16:49 10/09/24 03:33 POC Glucose 215 mg/dl (70-106) Sodium Level 136 mmol/L (136-145) Potassium Level 3.7 mmol/L (3.5-5.1) Chloride Level 99 mmol/L (98-107) Carbon Dioxide Level 28 mmol/L (20-31) Anion Gap 9 (5-15) Blood Urea Nitrogen 26 mg/dL (9-23) Creatinine 1.17 mg/dL (0.700-1.30) Glomerular Filtration Rate Calc 65 mL/min (>90) BUN/Creatinine Ratio 22.2 (10.0-20.0) Serum Glucose 151 mg/dL (74-106) Calcium Level 9.8 mg/dL (8.7-10.4) Prothrombin Time 11.3 sec (9.3-11.8) Prothrombin Time INR 1.07 (0.9-1.15) Activated Partial Thromboplast Time 39.0 SEC (24.5-34.5) White Blood Count 12.0 10^3/uL (4.4-10.8) Red Blood Count 5.23 10^6/uL (4.5-5.90) Hemoglobin 15.1 g/dL (13.5-17.5) Hematocrit 45.3 % (41.0-53.0) Mean Corpuscular Volume 86.6 fL (80.0-100.0) Mean Corpuscular Hemoglobin 29.0 pg (28.0-32.0) Mean Corpuscular Hemoglobin Concent 33.4 g/dL (32.0-36.0) Red Cell Distribution Width 14.5 % (11.8-14.3) Platelet Count 251 10^3/uL (140-450) Mean Platelet Volume 8.4 fL (6.9-10.8) Neutrophils (%) (Auto) 62.6 % (37.0-80.0) Lymphocytes (%) (Auto) 24.3 % (10.0-50.0) Monocytes (%) (Auto) 9.2 % (0.0-12.0) Eosinophils (%) (Auto) 2.4 % (0.0-7.0) Basophils (%) (Auto) 1.5 % (0.0-2.0) Neutrophils # (Auto) 7.5 10 ^3/uL (1.6-8.6) Lymphocytes # (Auto) 2.9 10 ^3/uL (0.4-5.4) Monocytes # (Auto) 1.1 10 ^3/uL (0-1.3) Eosinophils # (Auto) 0.3 10 ^3/uL (0-0.8) Basophils # (Auto) 0.2 10 ^3/uL (0-0.2) Nucleated Red Blood Cells 0.0 % Test 10/08/24 07:28 10/07/24 21:05 10/07/24 20:20 10/07/24 17:35 Urine Color Light-yellow (Yellow) Urine Clarity Clear (Clear) Urine pH 5.5 (5.0-9.0) Urine Specific [place] 1.012 (1.001-1.035) Urine Protein Negative (Negative) Urine Ketones Negative (Negative) Urine Blood Negative /uL (Negative) Urine Nitrite Negative (Negative) Urine Bilirubin Negative (Negative) Urine Urobilinogen Normal mg/dL (Negative) Urine Leukocyte Esterase Negative /uL (Negative) Urine RBC <1 /hpf (0 - 3) Urine Microscopic WBC < 1 /HPF (0-3) Urine Squamous Epithelial Cells Few /hpf (<5) Urine Bacteria Few /hpf (None Seen) Urine Glucose 4+ mg/dL (Normal) Lactic Acid Level 2.0 mmol/L (0.4-2.0) Troponin I High Sensitivity 28687 ng/L (</=54) Magnesium Level 1.8 mg/dL (1.6-2.6) Total Bilirubin 0.7 mg/dL (0.2-1.0) Aspartate Amino Transferase (AST) 137 U/L (13-40) Alanine Aminotransferase (ALT) 28 U/L (7-40) Alkaline Phosphatase 123 U/L (46-116) B-Type Natriuretic Peptide 1066.46 pg/mL (0-100) Total Protein 7.4 g/dL (5.7-8.2) Albumin 4.5 g/dL (3.2-4.8) Other Laboratory Tests 10/10/24 05:47 10/09/24 03:33 Brief Hx & Hospital Course: This is a 74-year-old male with past medical history of hypertension, CAD, CVA, status post CABG, dyslipidemia presented to the ED with a complaint of chief complaint chest pain for 2 days prior to this admission. according to the patient the chest pain started since Sunday after lunch which was substernal sharp pain with heaviness in the chest he took nitroglycerin but did not relieve the pain and getting worse that prompted this visit. patient also mentioned he was scheduled for elective left heart catheterization on with Dr. Ng. EKG revealed T inversion in inferior lead, sinus rhythm [place] [address]. Hospital course: Initial EKG revealed T inversion in inferior leads, normal sinus rhythm and RBBB ,troponin trends were 17542> 91657> 52114. CxR showed Low lung volumes with mild bibasilar subsegmental atelectasis. No pulmonary edema. BNP was elevated and ECHO on 08/19 demonstrated EF 45-50%, [id number] valvular aortic stenosis aortic valve area 1.0 cm2 with maximum pressure gradient 32 mm Hg and mean pressure gradient 19 mm Hg. patient was given aspirin 325 mg p.o. once and IV heparin drip as per protocol. Patient Underwent left heart catheterization and PTCA x2 stent in saphenous vein graft OM and RCA. Blood sugar was controlled with Lantus 15 units at q.p.m. and mild sliding scale of insulin. Today blood pressure was 88/51 and Hold antihypertensive because of the hypotension. Patient was given 250 mL IV normal saline bolus and the subsequent blood pressure was 113/64. discharge plan was discussed with the patient and the and all questions were answered. the patien the patient is being discharged to home with aspirin 81 mg daily, Plavix 75 mg daily, Lasix 20 mg daily, potassium chloride 10 mEq daily, continued home medications except losartan potassium 50 mg daily and metoprolol succinate 25 mg b.i.d. which was discontinued because of the hypotension. patient was advised to follow up with PCP in 1 week and inform the PCP to readjust the antihypertensives according to the response of the blood pressure. patient was also advised to follow up with warehouse packer in 1-2 week. Physical examination: General Appearance: Alert, Oriented X3, Cooperative, No acute distress HEENT: Atraumatic, PERRLA, EOMI, Mucous membrane moist/pink Respiratory: Clear to auscultation, Normal air movement Cardiovascular: Regular rate, Normal S1, Normal S2, No murmurs, no chest wall tenderness Abdominal: Normal bowel sounds, Soft, No tenderness, No hepatospenomegaly, No masses Extremities: No clubbing, No cyanosis, No edema, Normal pulses, No tenderness/swelling Skin: No rashes, No breakdown, No significant lesion Neuro: Normal gait, Normal speech, Strength at 5/5 X4 ext, Normal tone, Sensation intact, grossly intact cranial nerves. Psych/Mental Status: Mental status NL, Mood NL Consults/Reason for consult Transitional Care Nurse Dr. Ng was consulted. Operations or Procedures DATE OF SURGERY: 10/09/2024 INDICATIONS: The patient with non-ST elevation GA. He also has permanent pacemaker, so it is difficult to determine whether the patient has ST elevation or not. Furthermore, the patient has elevated troponins and chest pain. The patient was put on heparin. There was a great washout after heparin therapy was initiated, consistent with reperfusion. At this time, the patient is to undergo coronary angiography to define coronary anatomy with possibility of angioplasty. The patient also has critical aortic valve stenosis and the patient was actually scheduled to undergo left and right heart catheterization today, but the patient presented with subendocardial GA and therefore was admitted over 48 hours earlier. He is now to undergo left and right heart catheterization. PROCEDURES PERFORMED: * Left and right heart cath. * Angiography of the saphenous vein graft x 2. * Subclavian and left internal mammary angiography. * Conscious sedation. * Angioplasty with stent placement in the saphenous vein graft to the OM with thrombectomy as well as stent placement. * Angiography with stent placement of the right coronary artery with thrombectomy with shockwave as well as FFR of the RCA, which was 0.77. DESCRIPTION OF PROCEDURE: The patient was prepped and draped in sterile condition. Xylocaine 1% used to anesthetize the right groin. Using a Cook needle, right femoral artery was engaged, Seldinger technique, a 6-[place] sheath in the right femoral artery. Similarly, a 6-[place] sheath was introduced in the right femoral vein. Using a 6-[place] JL4 catheter and 6-[place] JR4 catheter, selective left and right coronary angiographies were performed. Using a 6-[place] JR4 catheter, angiography to saphenous vein graft and COHEN was performed as well. Then, the diagnostic angiography was exchanged for an interventional system. Using an LCB guide catheter, the saphenous vein graft to the OM was cannulated. ChoICE PT extra support wire was then introduced into the saphenous vein graft. It was then balloon angioplastied with a 2.5 x 20 mm [place] balloon. During this procedure, the patient became hypotensive, bradycardic, and had to be started on dopamine to keep the blood pressure up. The patient became hypotensive and bradycardic, but pacing kept him in appropriate rhythm. Following once the angioplasty was done, the patient had reperfusion established from ANDI grade 1 flow to ANDI grade 3 flow. The patient's hemodynamic status improved immediately. The patient was also given Narcan and flumazenil to reverse sedation. Following the balloon angioplasty, a 3.0 x 12 mm shockwave thrombectomy catheter was used at the ostium because of heavy calcification. Then, a 3.5 x 22 mm [place] stent was then deployed across the lesion at 20 atmospheres. There were no complications at this point. The procedure went smoothly. Once this was done, then the patient had COHEN. The guide catheter was inserted in the right coronary artery. ChoICE PT extra support wire was used to cross the lesion. It was then balloon angioplastied with a 2.5-mm Euphora balloon. A shockwave was used, 3.0 x 12 mm shockwave because of heavy calcification. Once again, a thrombectomy catheter was used. Following that, a 3.5 x 22 mm [place] stent was deployed across the proximal RCA. There were no complications. The patient tolerated the procedure well. FFR was performed. The RCA was 0.77 consistent with hemodynamically significant narrowing. Left ventriculogram showed the patient to have global hypokinesis and estimated EF around 35%. Down from 50% by echo from 2 weeks ago. At this point, the patient will be restudied in approximately 2 weeks to see how his ejection fraction is. We elected not to proceed with [place] catheterization because of hemodynamic status. We will wait until the patient fully recovers for us to do the right heart catheterization to calculate aortic valve status. We may even use a noninvasive protocol to assess the severity rather than doing an invasive protocol at this point. CONCLUSION: * Left main patent. * Left anterior descending artery was occluded. * COHEN to the LAD was patent. * Saphenous vein graft to the diagonal was occluded. * Obtuse marginal 1 was occluded. * Saphenous vein graft to the OM had a 99% subtotal narrowing, status post angioplasty with stent placement with a 3.5 x 22 mm [place] stent with thrombectomy catheter used with less than 10% residual stenosis, now with ANDI grade 3 flow. * [place] circumflex had severe diffuse disease throughout. * Right coronary artery, which was not bypassed, had a 95% proximal narrowing. * Status post angioplasty with stent placement of the RCA with a 3.5 x 22 mm Jose R stent with less than 10% residual stenosis. Thrombectomy and FFR was performed on the RCA. At this time, the patient is clinically stable. We will slightly titrate off on the dopamine. We will continue to follow the patient. Condition at Discharge: Guarded Final Diagnosis/Problems List # NSTEMI, s/p PTCA X 2 stents in saphenous vein graft and RCA # Possible acute on chronic systolic heart failure with mildly reduced ejection fraction ( EF 45 to 50%) # Severe aortic stenosis # CAD, H/O s/p PTCA X1 and CABG # Hypertensive heart disease # Dyslipidemia # Uncontrolled type 2 diabetes mellitus, HbA1C> 14.0% Discharge Disposition: Home Discharge Instruct/Medications Diet: Consistent carbohydrate, Cardiac 2g Na,low cholest Activity: No Restrictions, As Tolerated Follow Up/Referral: Follow up with PCP in 1 week Follow up with warehouse packer in 1-2 weeks Medications: As per EMR Discharge Statement: "Patient was advised to return to the ER or call 911 if any headaches, dizziness, shortness of breath, chest pain, abdominal pain, bleeding, fevers, or worsening of medical condition. Patient was counseled about treatment plan, medications, possible side effects, patientverbalized understanding. All questions were answered to the best of my ability. This discharge took greater then 30 minutes in planning, reviewing documentation, counseling the patient, and discussing with other team members." ASSESSMENT ASSESSMENT Assessment # NSTEMI, s/p PTCA X 2 stents in saphenous vein graft and RCA # Possible acute on chronic systolic heart failure with mildly reduced ejection fraction ( EF 45 to 50%) # Severe aortic stenosis # CAD, H/O s/p PTCA X1 and CABG # Hypertensive heart disease # Dyslipidemia # Uncontrolled type 2 diabetes mellitus, HbA1C> 14.0% Date of Service: Oct 10, 2024 Billing Provider: RICHIE HERRERA MD Common Visit Codes: 02675-BBO/OBS DISCH DAY >30min SHIRLENE PRATHER RESIDENT Oct 10, 2024 16:51 RICHIE HERRERA MD Oct 10, 2024 19:06
== END 2024-10-10 18:50 | disposition home or self-care (01) | DRG 321 ==
LOC: ER 17:20 → OVERFLOW 19:34 → TELE-CENTR 10-08 16:21
PROVIDERS: ADMIT Internal Medicine; ATTEND Internal Medicine
PROC: 027135Z Dilation of Coronary Artery, Two Arteries with Two Drug-eluting Intraluminal Devices, Percutaneous Approach (ICD-10-PCS; principal; 2024-10-09)
PROC: 02C13ZZ Extirpation of Matter from Coronary Artery, Two Arteries, Percutaneous Approach (ICD-10-PCS; 2024-10-09)
PROC: 4A033BC Measurement of Arterial Pressure, Coronary, Percutaneous Approach (ICD-10-PCS; 2024-10-09)
PROC: 4A023N7 Measurement of Cardiac Sampling and Pressure, Left Heart, Percutaneous Approach (ICD-10-PCS; 2024-10-09)
PROC: B21F1ZZ Fluoroscopy of Other Bypass Graft using Low Osmolar Contrast (ICD-10-PCS; 2024-10-09)
PROC: B2111ZZ Fluoroscopy of Multiple Coronary Arteries using Low Osmolar Contrast (ICD-10-PCS; 2024-10-09)
PROC: B2151ZZ Fluoroscopy of Left Heart using Low Osmolar Contrast (ICD-10-PCS; 2024-10-09)
PROC: B2181ZZ Fluoroscopy of Left Internal Mammary Bypass Graft using Low Osmolar Contrast (ICD-10-PCS; 2024-10-09)
DX: I21.4 Non-ST elevation (NSTEMI) myocardial infarction (principal); I50.23 Acute on chronic systolic (congestive) heart failure; N17.9 Acute kidney failure, unspecified; I95.9 Hypotension, unspecified; I11.0 Hypertensive heart disease with heart failure; I35.0 Nonrheumatic aortic (valve) stenosis; E78.5 Hyperlipidemia, unspecified; E11.9 Type 2 diabetes mellitus without complications; I25.10 Atherosclerotic heart disease of native coronary artery without angina pectoris; Z95.1 Presence of aortocoronary bypass graft; Z86.73 Personal history of transient ischemic attack (TIA), and cerebral infarction without residual deficits; Z95.0 Presence of cardiac pacemaker
CPT/HCPCS: 36415; 71045; 71046; 80048; 80053; 81001; 82962; 83605; 83735; 83880; 84484; 85025; 85610; 85730; 92928; 92941; 92973; 93005; 93459; 93571; 99291; G0378; G0463; J1815; J2250; J2405

== ENCOUNTER → 2024-10-07 | Outpatient (CLI) | payer OTHER ==
[~2024-10-07] MED LIST changes: +ASPI325T6 PO; +ASPI81CH59 PO; +ATOR20TA50 PO; +FURO1TAB33 PO; +POTA-36 PO; +QUET100T38 PO; +SITA100T7 PO
[2024-10-07 10:20] VITALS: BP 92/55; PULSE 95; RESP 16; O2SAT 96
[2024-10-07 10:30] VITALS: BP 106/68; PULSE 96; RESP 16; O2SAT 96
--- NOTE | 2024-10-07 13:32 | DVH ---
EXAM: XY CHEST TWO VIEWS ROUTINE CLINICAL HISTORY: PRE OP COMPARISON: CXR2 on DOS: 03/24/22, CXR2 on DOS: 10/10/21 TECHNIQUE: Frontal and lateral view of the chest was obtained FINDINGS: Lines and Tubes: Cardiac pacemaker projects over left chest wall. Lungs: No focal consolidation. Low lung volumes. Pleura: No effusion. No pneumothorax. Cardiomediastinal contours: Unremarkable. Atherosclerotic vascular calcifications of the thoracic ao rta are noted. Bones: No acute osseous abnormality. IMPRESSION: No acute cardiopulmonary disease.
== END | disposition home or self-care (01) ==
LOC: Rad HDHVI 10:00
PROVIDERS: ATTEND Internal Medicine Cardiovascular Disease
DX: Z01.818 Encounter for other preprocedural examination (principal); I49.3 Ventricular premature depolarization; I70.0 Atherosclerosis of aorta; R94.31 Abnormal electrocardiogram [ECG] [EKG]; Z95.0 Presence of cardiac pacemaker
CPT/HCPCS: 71046; 93005; G0463

== ENCOUNTER 2025-01-26 11:22 | Outpatient (CLI) | payer OTHER ==
[~2025-01-26 11:22] MED LIST changes: -ALPR0.5T7 PO; -ASPI1TAB20 PO; -ASPI325T6 PO; +ASPI81CH59 PO; -ATOR20TA50 PO; -ERGO2000 PO; +FURO1TAB33 PO; -LOSA-534 PO; -METO25TA93 PO; -QUET1TAB11 PO
[2025-01-26 11:47] LABS: Hematocrit 46.3 % (41.0-53.0); Hemoglobin 15.6 g/dL (13.5-17.5); Mean Corpuscular Hemoglobin 29.3 pg (28.0-32.0); Mean Corpuscular Volume 87.1 fL (80.0-100.0); Nucleated Red Blood Cells % 0.2 %
[2025-01-26 12:02] LABS: Urine Protein, UAD TRACE (Negative)
[2025-01-26 12:08] LABS: Chloride 102 mmol/L (98-107); Potassium 4.8 mmol/L (3.5-5.1)
[2025-01-26 12:09] LABS: Anion Gap 12 (5-15); Calcium 9.4 mg/dL (8.7-10.4); Carbon Dioxide 22 mmol/L (20-31)
[2025-01-26 12:14] LABS: BUN/Creatinine Ratio 13.3 (10.0-20.0); Blood Urea Nitrogen 16 mg/dL (9-23); Glucose 276 mg/dL (74-106); Sodium 136 mmol/L (136-145); Triglycerides 174 mg/dL (< 150)
[2025-01-26 12:16] LABS: Cholesterol 249 mg/dL (< 200); HDL Cholesterol 43 mg/dL (40-59)
== END 2025-01-26 17:00 | disposition home or self-care (01) ==
LOC: LAB 11:22
PROVIDERS: ATTEND Internal Medicine Cardiovascular Disease
DX: C61 Malignant neoplasm of prostate (principal); I10 Essential (primary) hypertension; E55.9 Vitamin D deficiency, unspecified; E11.9 Type 2 diabetes mellitus without complications; D51.3 Other dietary vitamin B12 deficiency anemia; D64.9 Anemia, unspecified; R00.2 Palpitations; R53.1 Weakness; R30.0 Dysuria
CPT/HCPCS: 36415; 80048; 80061; 81001; 83036; 84153; 84403; 84443; 85025

== ENCOUNTER 2025-05-26 10:15 | Outpatient (CLI) | payer OTHER ==
[2025-05-26 11:07] LABS: Hematocrit 44.7 % (41.0-53.0); Hemoglobin 15.0 g/dL (13.5-17.5); Mean Corpuscular Hemoglobin 28.8 pg (28.0-32.0); Mean Corpuscular Volume 85.6 fL (80.0-100.0); Nucleated Red Blood Cells % 0.1 %
[2025-05-26 11:16] LABS: Alanine Aminotransferase 15 U/L (7-40); Albumin 4.3 g/dL (3.2-4.8); Alkaline Phosphatase 107 U/L (46-116); Anion Gap 11 (5-15); BUN/Creatinine Ratio 11.0 (10.0-20.0); Blood Urea Nitrogen 13 mg/dL (9-23); Calcium 9.9 mg/dL (8.7-10.4); Carbon Dioxide 27 mmol/L (20-31); Chloride 101 mmol/L (98-107); HDL Cholesterol 43 mg/dL (40-59); Potassium 4.3 mmol/L (3.5-5.1); Sodium 139 mmol/L (136-145); Total Protein 7.6 g/dL (5.7-8.2); Triglycerides 129 mg/dL (< 150)
[2025-05-26 11:17] LABS: Bilirubin, Total 0.8 mg/dL (0.2-1.0)
[2025-05-26 11:21] LABS: Glucose 292 mg/dL (74-106)
[2025-05-26 11:22] LABS: Cholesterol 209 mg/dL (< 200)
[2025-05-26 11:31] LABS: Urine Protein, UAD TRACE (Negative)
[2025-05-26 12:24] LABS: Microalb/Creat Ratio, Urine 84.0
== END 2025-05-26 17:00 | disposition home or self-care (01) ==
LOC: LAB 10:15
PROVIDERS: ATTEND Internal Medicine
DX: I12.9 Hypertensive chronic kidney disease with stage 1 through stage 4 chronic kidney disease, or unspecified chronic kidney disease (principal); E11.22 Type 2 diabetes mellitus with diabetic chronic kidney disease; N18.9 Chronic kidney disease, unspecified
CPT/HCPCS: 36415; 80053; 80061; 81001; 82043; 82570; 83036; 84439; 84443; 85025